=== PATIENT | female | born 1945 | race Caucasian/White ===

== ENCOUNTER 2021-05-01 03:26 | Inpatient (IN) | payer MEDICARE, BC, SELFPAY ==
[2021-05-01] VITALS (23 sets, daily range): BP systolic 101–127; BP diastolic 53–85; PULSE 76–125; RESP 14–23; TEMP 36.2–36.9; O2SAT 93–97; BMI 52.2
[2021-05-01] MEDS: ACETAMINOPHEN 1,000 MG/100 ML BTL 400 MG IVPB ×3 (06:00→22:31)
[2021-05-01] MEDS: Lactated Ringers 1,000 ML 85 ML IV (06:20)
[2021-05-01 07:16] LABS: Abs Immature Grans 0.12 10^3/uL (0.0-0.06); Absolute Basophil Count 0.04 10^3/uL (0.0-0.2); Absolute Eosinophil Count 0.05 10^3/uL (0.0-0.7); Absolute Monocyte Count 0.77 10^3/uL (0.1-0.8); Absolute Neutrophil Count 6.35 10^3/uL (1.2-6.7); Basophils % 0.5; Eosinophils % 0.7; HCT 30.3 % (36.0-46.0); HGB 10.5 g/dL (11.2-15.7); Immature Grans % 1.6; Lymphocytes % 3.9; MCH 43.8 pg (27.0-33.0); MCHC 34.7 % (32.0-36.0); MCV 126.3 fL (80-95); MPV 10.2 fL (8.0-11.0); Monocytes % 10.1; Neutrophils % 83.2; Nucleated RBC 3 %; Platelet Count 231 10^3/uL (130-400); RDW 18.3 % (11.7-14.6); RDW-SD 86.5 fL; WBC 7.63 10^3/uL (4.4-10.8)
--- NOTE | 2021-05-01 07:25 | HPE_ITS ---
Date of service: 05/01/21 Time of Service: 07:26 Assessment and Plan Assessment and plan (1) Subtrochanteric fracture of left femur: Status: Acute Assessment and plan: mechanical fall, no LOC although she was dx w/ new onset afib. No symptoms or signs of acute CHF nor ACS. Afib could be d/t MARJORIE or d/t her chronic alcohol use (2) Atrial fibrillation: Status: Acute Assessment and plan: new onset; will put her on lopressor 5 mg IV Q6h while NPO, then switch to oral lopressor. needs OP workup for MARJORIE; patient needs to reduce her alcohol to 1 drink per day or less. Will monitor for withdrawal w/ CIWA scoring and put her on banana bag. (3) Morbid obesity: Status: Acute (4) Primary sclerosing cholangitis: Status: Chronic (5) Rheumatoid arthritis: Status: Chronic (6) Autoimmune hepatitis: Status: Chronic History of Present Illness History of Present Illness Chief Complaint: left hip pain Narrative: 75 yr old female resident of [place], [place] who presented to [facility] after a mechanical fall resulting in left hip pain and found to have a subtrochanteric hip fracture. There was no loss of consciousness. Patient states this happened around 8 pm while putting things away in her kitchen and she turned and lost her balance. On arrival to [facility] she had external rotation of her hip and foreshortening of the left leg and unable to bear weight. The ER doctor performed a workup including routine labs (CBC, CMP, UA, TSH, troponin I and Covid-19 PCR (negative), EKG, and xray of her pelvis and left femur. She was found to have new onset atrial fibrillation at controlled rate of 90 to low 100's) and stable BP. Patient is vaccinated against COVID-19 and has had no exposures. Her is also vaccinated. She drinks 4 to 5 drinks of mixed whiskey and keely zhanna (about 1 1/2 shots per glass). She had about 4 drinks earlier in the evening prior to her fall. She has not had hx of withdrawal. Dr. Tonya Lake, ED physician at [facility] called multiple [facility] hospitals for transfer for surgical repair of her hip but none were able to accept her until he reached out to Dr. Fragoso who called me. Patient denies any hx of palpitations or chest pain/pressure however she lives a rather sedentary life. She has no known cardiac history that she is aware. The atrial fibrillation is a new diagnosis. Her comorbidities include autoimmune hepatitis/PSC mixed overlap along w/ RA. She is followed at [facility] by Dr. Cooper Ortiz. She is morbidly obese (BMI 52, wt 125 kg), and does not do any yardwork or gardening and rarely goes out shopping. 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 She and her live in a [facility] home in [place], [place] and their bedroom, living room, kitchen and bath are all on one floor. Review of Systems Constitutional Constitutional: Reports as per HPI and Reports snoring (no witnessed apnea) Eyes Eyes: Denies change in vision, Denies diplopia and Reports requires corrective lenses ENT Ears, Nose, Mouth, and Throat: Reports system reviewed and no additional complaints, except as documented and Reports disequilibrium Cardiovascular Cardiovascular: Denies chest pain at rest, Denies chest pain with activity, Denies syncope, Denies rapid heart rate, Reports irregular heart rhythm, Denies lightheadedness and Reports dyspnea on exertion Respiratory Respiratory: Denies chest congestion, Denies cough, Denies excessive phlegm production, Reports dyspnea on exertion, Reports snoring (no witnessed apnea) and Denies wheezing Gastrointestinal Gastrointestinal: Denies abdominal pain, Reports constipation, Denies nausea and Denies vomiting Genitourinary Genitourinary: Reports system reviewed and no additional complaints, except as documented Musculoskeletal Musculoskeletal: Reports as per HPI, Reports deformity and Reports arthralgias Integumentary/Breasts Skin/Breast: Reports system reviewed and no additional complaints, except as documented Neurologic Neurologic: Reports system reviewed and no additional complaints, except as documented, Denies syncope, Denies paresthesias and Reports disequilibrium Psychiatric Psychiatric: Reports system reviewed and no additional complaints, except as documented Endocrine Endocrine: Reports system reviewed and no additional complaints, except as documented Hematologic/Lymphatic Hematologic/Lymphatic: Reports system reviewed and no additional complaints, except as documented Allergic/Immunologic Allergic/Immunologic: Reports system reviewed and no additional complaints, except as documented and Denies wheezing [facility] Medical History (Updated 05/01/21 @ 09:56 by Thiago Garg) Autoimmune hepatitis Breast cyst Cataract Colitis Lipoma Morbid obesity Primary sclerosing cholangitis Rheumatoid arthritis Surgical History (Updated 05/01/21 @ 09:31 by Thiago Garg) H/O colonoscopy History of esophagogastroduodenoscopy (EGD) Family History (Updated 05/01/21 @ 09:33 by Thiago Garg) Father Lung cancer in his 70's Mother , in 80's unknown cause No problems noted. Sister , in her 90's unknown cause No problems noted. Social History (Updated 05/01/21 @ 09:35 by Thiago Garg) Smoking/Tobacco Use Status: Never Smoking risk assessment performed?: Yes Alcohol Intake: current Alcohol Intake frequency: 3 or more drinks per day Alcohol type: hard liquor Details: drinks 4 to 5 mixed drinks per night Drug use: Never Substance use type: does not use Do you feel safe at home: Yes History History 2 Para Hx # Term Pregnancies 2 Multiple births Hx # Pregnancies Ectopic pregnancies AB induced Hx Number of Living Children 2 AB spontaneous Meds Allergies and Home Medications Allergies Allergy/AdvReac Type Severity Reaction Status Date / Time No Known Allergies Allergy Unverified 05/01/21 05:18 Exam Const General: cooperative and well developed Nutritional Appearance: obese Orientation: alert, awake and oriented x3 HENMT Head: normal to inspection, no palpable skull fracture, normocephalic and atraumatic Ears: hearing grossly normal bilaterally, external ears normal and EAC abnormal excessive cerumen bilaterally General nose exam: external nose normal, nares normal, nasal mucous membranes and turbinates normal and no nasal discharge Face and sinus: normal facial exam Eyes General: appearance normal, both eyes and all related structures Visual Man: normal visual man by confrontation Alignment and Position: alignment normal Periorbital: periorbital findings normal Eyelids: eyelids normal Conjunctivae: conjunctivae normal Sclera: sclerae normal Cornea: corneas normal Pupils: PERRL and normal by confrontation EOM: EOM intact bilaterally Direct ophthalmoscopy: normal light reflex Neck Neck: normal visual inspection, full ROM, no lymphadenopathy, no meningeal signs, trachea midline, supple and no JVD Thyroid: thyroid normal Carotids: normal carotid upstroke Lymphatic: no lymphadenopathy noted Chest Chest: normal inspection of the chest and normal palpation of entire chest wall Resp Effort & Inspection: normal respiratory effort and able to speak in complete sentences Auscultation: clear to auscultation bilaterally Cardio Jugular venous pressure: no JVD Palpation: normal PMI Rate: regular rate Rhythm: abnormal rhythm irregularly irregular Bruits: no abdominal aortic bruits and no carotid bruits Pulses: brachial pulses present, radial pulses present, ulnar radial pulses present, popliteal pulses present, posterior tibial pulses present and dorsalis pedis present GI Inspection: normal to inspection and obesity Palpation: soft and no hepatosplenomegaly Back/Spine/Pelvis Back: no CVA tenderness Cervical Spine: normal cervical lordosis Skin General skin exam: elasticity normal, turgor normal and jaundice Lesions: no lesions Rashes: no rashes Trauma: no lacerations or abrasions Hair: normal Neuro General: patient alert, patient awake and patient oriented x3 Cranial Nerves: CN's II-XI intact bilaterally Cognition: normal cognition Speech: speech normal Motor: muscle tone normal throughout and strength 5/5 throughout (I did not test strength nor ROM in her left leg d/t her hip frx) Sensory Exam: no sensory deficits noted Extrem General: normal to inspection, capillary refill normal and normal exam except as noted (left leg is external rotated and foreshorted, tender over L. IT) Right lower extremity: foot Details: abnormal to inspection Details: a deformity Location: of the great toe and of the hallux valgus Left lower extremity: foot Details: normal capillary refill and abnormal to inspection Details: a deformity Location: of the hallux valgus Psych Appearance: grossly normal Mental Status: mental status grossly normal Speech and Movement: speech and movement normal Mood: congruent mood Affect: normal affect Attitude: cooperative Thought Process: normal Thought Content: normal Insight: insight good Judgment: judgment good Results Labs Result diagrams: 05/01/21 06:25 05/01/21 06:25 Last Vital Signs Temp 36.6 C 05/01/21 05:27 Pulse 104 H 05/01/21 05:27 Resp 18 05/01/21 05:27 BP 125/72 05/01/21 05:27 Pulse Ox 96 05/01/21 05:27 PAWSS Have you Been Recently Intoxicated or Drunk Within the Last 30 days?: No Have you Ever Experienced Previous Episodes of Alcohol Withdrawal?: No Have you ever Experienced Withdrawal Seizures?: No Have you ever Experienced Delirium Tremens(DT)s?: No Have you ever undergone Alcohol Rehabilitation Treatment (i.e, inpt ot outpatient treatment programs)?: No Have you ever Experienced Blackouts?: No Have you ever Combined Alcohol with other Downers within the last 90 days?: No Have you ever Combined Alcohol with any other Substance of Abuse during the last 90 days?: No Positive Blood Alcohol level on Presentation? [PCS.BAL]: No Evidence of Increased Autonomic Activity (i.e. HR>120, tremor, sweating, agitation, nausea)?: No Result: 0
[2021-05-01 07:47] LABS: ALT 34 U/L (14-59); AST 44 U/L (15-37); Albumin 2.9 g/dL (3.4-5.0); Alkaline Phosphatase 83 U/L (46-116); Anion Gap 10.9 mmol/L (3-11); BUN 11 mg/dL (7-18); Bilirubin, Total 3.8 mg/dL (0.2-1.0); CO2 23.1 mmol/L (21.0-32.0); CREATININE 0.6 mg/dL (0.55-1.02); Calcium 8.5 mg/dL (8.5-10.1); Chloride 106 mmol/L (98-107); Glucose 114 mg/dL (74-106); Magnesium 1.7 mg/dL (1.8-2.4); Potassium 4.4 mmol/L (3.5-5.1); Sodium 140 mmol/L (136-145); TSH (W/Ref FT4) 2.72 uIU/mL (0.36-3.74); Total Protein 5.8 g/dL (6.4-8.2)
[2021-05-01 07:51] LABS: Anisocytosis 1+; Basophilic Stippling Present; Diff Comment RBC Morph Reviewed
[2021-05-01 07:52] LABS: Macrocytosis 3+; Poikilocytes 1+
[2021-05-01 07:56] LABS: Source Nasal/Nares
--- NOTE | 2021-05-01 08:01 | OCONE_ITS ---
Date of service: 05/01/21 Time of Service: 08:01 History of Present Illness History of Present Illness Chief Complaint: Left Hip Fracture Narrative: Devi is a 75-year-old who fell last night she fell onto her left side. She had immediate pain and deformity and was unable to bear weight. She was seen at the [facility] in [facility]. She was diagnosed with a comminuted intertrochanteric fracture of the left hip. There is no orthopedic coverage at [facility] and requesting transfer was unsuccessful. Multiple hospitals were called and there were no beds available. I was contacted by the emergency department physician from [facility] who requested transfer for fixation of the hip fracture. I obliged to fix the fracture under the admission and consultation of medicine. Ms. Yousif was then admitted in transfer to Dr. Kennedy and the hospitalist service. She reports no significant premorbid hip pain. However, she does have bilateral knee pain, slightly worse on the left. She has had back pain for years. She sees Dr. Ortiz for autoimmune hepatitis but otherwise does not follow with a primary care provider. She denies any sick contacts. She reports to be in her usual state of health. Unfortunately, she is not very active and walks only minimally. She does have shortness of breath when she tries to walk any longer distance or try to go up stairs. She reports pain in the left hip. No pain in the left leg. No numbness or tingling. Consults Consult date: 05/01/21 Requesting physician: Thiago Garg Consult Reason Left Hip Fracture Assessment and Plan Assessment and plan (1) Intertrochanteric fracture of left femur: Status: Acute Assessment and plan: Devi is a 75-year-old who suffered a comminuted intertrochanteric fracture of the left hip. She does have a new diagnosis of atrial fibrillation which was seen on the EKG. Echocardiogram has been performed does not show any concerning features to preclude surgery. She is morbidly obese and this unfortunately make the fracture fixation very challenging for access. My recommendation be for an intramedullary nail. I discussed the technical features of this case. I reviewed the risk of the procedure to include bleeding, infection, pain, stiffness, hardware prominence, hardware failure, malunion, nonunion, need for repeat procedures, refracture, blood clot, cardiopulmonary demise. She does carry cardiac risk given the new diagnosis of atrial fibrillation and her morbid obesity. She will build to mobilize afterwards weightbearing as tolerated with an assistive device. However, the unlikely should be able to go home given her significant comorbidities including morbid obesity. I will default to the medicine service for anticoagulation afterwards as well. Qualifiers: Encounter type: initial encounter Fracture type: closed Fracture alignment: displaced Qualified Code(s): S72.142A - Displaced intertrochanteric fracture of left femur, initial encounter for closed fracture Review of Systems All systems reviewed & are unremarkable except as noted in HPI and below PFSH Medical History (Updated 05/01/21 @ 15:51 by Wlison Fragoso MD) Autoimmune hepatitis Breast cyst Cataract Colitis Lipoma Morbid obesity Primary sclerosing cholangitis Rheumatoid arthritis Surgical History (Updated 05/01/21 @ 09:31 by Thiago Garg) H/O colonoscopy History of esophagogastroduodenoscopy (EGD) Family History (Updated 05/01/21 @ 09:33 by Thiago Garg) Father Lung cancer in his 70's Mother , in 80's unknown cause No problems noted. Sister , in her 90's unknown cause No problems noted. Social History (Updated 05/01/21 @ 09:35 by Thiago Garg) Smoking/Tobacco Use Status: Never Smoking risk assessment performed?: Yes Alcohol Intake: current Alcohol Intake frequency: 3 or more drinks per day Alcohol type: hard liquor Details: drinks 4 to 5 mixed drinks per night Drug use: Never Substance use type: does not use Do you feel safe at home: Yes History History 2 Para Hx # Term Pregnancies 2 Multiple births Hx # Pregnancies Ectopic pregnancies AB induced Hx Number of Living Children 2 AB spontaneous Exam Narrative Exam Narrative: Resting in the hospital bed. Head is normocephalic and atraumatic. She appears comfortable and is alert and oriented x3. The left leg is shortened and externally rotated.No notable bruising is appreciated. She is morbidly obese. There is some chronic changes on the pannus fold but no sign of infection. There are some signs of chronic edema about bilateral lower extremities a notable hallux valgus deformity of the left foot as well as the right. Some mild pain to palpation along the medial joint line of the left knee. No pain along the tibia no pain over the distal femur. Hip range of motion was not tested. Sensation intact light touch over the deep and superficial peroneal nerve and tibial nerve. Palpable DP and PT pulse. Results Last Vital Signs Temp 36.8 C 05/01/21 07:30 Pulse 107 H 05/01/21 07:30 Resp 17 05/01/21 07:30 BP 105/71 05/01/21 07:30 Pulse Ox 95 05/01/21 07:30 Labs Result diagrams: 05/01/21 06:25 05/01/21 06:25 Labs: Laboratory Results - last 24 hr 05/01/21 05/01/21 05/01/21 06:25 06:25 06:44 WBC 7.63 RBC 2.40 L Hgb 10.5 L Hct 30.3 L MCV 126.3 H MCH 43.8 H MCHC 34.7 RDW 18.3 H Plt Count 231 MPV 10.2 Immature Gran % 1.6 Neutrophils % 83.2 Lymphocytes % 3.9 Monocytes % 10.1 Eosinophils % 0.7 Basophils % 0.5 Nucleated RBC % 3 Absolute Neutrophils 6.35 Absolute Lymphocytes 0.30 L Absolute Monocytes 0.77 Absolute Eosinophils 0.05 Absolute Basophils 0.04 RBC Morphology See Below Poikilocytosis 1+ Basophilic Stippling Present Anisocytosis 1+ Macrocytosis 3+ Sodium 140 Potassium 4.4 Chloride 106 Carbon Dioxide 23.1 Anion Gap 10.9 BUN 11 Creatinine 0.6 Estimated GFR/1.73 m2 >= 60.00 Glucose 114 H Calcium 8.5 Magnesium 1.7 L Total Bilirubin 3.8 H AST 44 H ALT 34 Alkaline Phosphatase 83 Total Protein 5.8 L Albumin 2.9 L TSH 2.72 COVID-19 Source SARS-CoV-2 (PCR) Patient ABO/Rh A Positive Antibody Screen NEGATIVE 05/01/21 05/01/21 07:35 07:35 WBC RBC Hgb Hct MCV MCH MCHC RDW Plt Count MPV Immature Gran % Neutrophils % Lymphocytes % Monocytes % Eosinophils % Basophils % Nucleated RBC % Absolute Neutrophils Absolute Lymphocytes Absolute Monocytes Absolute Eosinophils Absolute Basophils RBC Morphology Poikilocytosis Basophilic Stippling Anisocytosis Macrocytosis Sodium Potassium Chloride Carbon Dioxide Anion Gap BUN Creatinine Estimated GFR/1.73 m2 Glucose Calcium Magnesium Total Bilirubin AST ALT Alkaline Phosphatase Total Protein Albumin TSH COVID-19 Source Cancelled Nasal/Nares SARS-CoV-2 (PCR) Cancelled Patient ABO/Rh Antibody Screen Imaging Imaging Studies: X-ray of the pelvis and the left hip demonstrates a comminuted intertrochanteric fracture of the left hip with notable shortening. This fracture seems to extend into the greater trochanter and exits at the level of the lesser trochanter. No distal extension is appreciated.
[2021-05-01] MEDS: MAGNESIUM SULFATE 2 GM/50 ML BAG IVPB (08:11)
[2021-05-01 08:46] LABS: COVID-19 PCR Negative (Negative)
[2021-05-01] MEDS: Thiamine 100 MG TAB PO (09:15)
[2021-05-01] MEDS: Multivitamin TAB 1 TAB PO (09:15)
[2021-05-01] MEDS: Ketorolac 15 MG/ML VIAL IVP (09:20)
[2021-05-01] MEDS: Normal Saline Flush 10 ML SYR (09:21)
[2021-05-01] MEDS: Pantoprazole 40 MG VIAL IVP (09:21)
[2021-05-01 09:25] LABS: Folate 3.5 ng/mL (8.6-20.0); Vitamin B12 564 pg/mL (193-986)
--- NOTE | 2021-05-01 09:45 | RT.EKG_ITS ---
APPROVED REPORT Exam: Resting ECG Reason for Exam: preoperative Patient Location: I HR:110 bpm ECG Measurements Heart Rate 110 AXIS DC [id number] P [id number] QRSd 95 QRS 9 QT 353 T 33 QTc 477 Conclusion Atrial fibrillation...? atrial activity Ventricular premature complex...V complex w/ short R-R interval Low voltage, precordial leads...precordial leads <1.0mV Consider anterior infarct...Q >30mS in V2-V5
[2021-05-01 10:51] LABS: Bilirubin, Direct 0.8 mg/dL (0.0-0.2); ETHANOL BLOOD 25.9 mg/dL (<3)
--- NOTE | 2021-05-01 10:56 | PDOC.CMIN ---
- If Service Date Differs Date of service: 05/01/21 Time of Service: 10:56 Care Management Initial Assess REASON FOR HOSPITALIZATION:: Fracture of left femur PAST MEDICAL HISTORY/PAST SURGICAL HISTORY:: Medical History (Updated 05/01/21 @ 09:56 by Thiago Garg). Autoimmune hepatitis. Breast cyst. Cataract. Colitis. Lipoma. Morbid obesity. Primary sclerosing cholangitis. Rheumatoid arthritis. Surgical History (Updated 05/01/21 @ 09:31 by Thiago Garg). H/O colonoscopy. History of esophagogastroduodenoscopy (EGD) PREVIOUS FUNCTIONAL STATUS/SOCIAL/FAMILY SUPPORTS:: Devi lives in [place], [place] in a single family home with her aP. She has 2 children, a daughter Emilie and a son Wing both of whom live closeby and are supportive.Devi descibes herself as independent and requires no assistive devices or community services. CURRENT FUNCTIONAL STATUS:: Devi was lying in bed visiting with her daughter when CM met with her. She was very pleasant and engaged easily with CM. She talked a bit about her family and about possible discharge plans. Dr. Fragoso stopped by while CM was with Devi and explained the procedure he was about to perform and explained that rehab in a SNF might be indicated if she can not get up independently post-operatively. Devi did state that she would be agreeable, but would prefer to go home. CM assured her that placement would be sought close to her home if it was necessary. ADVANCE DIRECTIVES:: Devi does not have ADs but is considering completing them while at [facility]. CM offered to assist with this process. Has patient been provided with info about the portal/API?: Yes Did the patient sign up for the portal?: No (lives out of area) CODE STATUS:: Full Code INSURANCE COVERAGE / FINANCIAL ISSUES:: Medicare. BC BS CURRENT HOME/COMMUNITY SERVICES/EQUIPMENT:: none PRIMARY CARE PHYSICIAN:: Bryn Sanches MD with the [facility] group. POTENTIAL DISCHARGE NEEDS:: Follow up with PCP, orthopedic surgeon and plan of care PATIENT/FAMILY EDUCATION NEEDS:: Review of discharge instructions, medications, activity, limitations, follow up plan, Ask Me Three TRANSPORTATION:: to be determined by disposition PLAN:: Devi's discharge plan is not clear at this time. She is having surgery later today and may need a short rehab stay prior to returning home. CM will continue to support Devi and assess for discharge planning concerns.
--- NOTE | 2021-05-01 11:00 | W.ANESPOSTOP ---
Postoperative Evaluation Date, Time and Location Date Performed: 05/01/21 Time Performed: 11:00 Patient Location: Day Surgery Unit Vital Signs Most Recent Imported Vital Signs: Most Recent Vital Signs Temp Pulse Resp BP Pulse Ox 36.8 C 107 H 17 105/71 95 05/01/21 07:30 05/01/21 07:30 05/01/21 07:30 05/01/21 07:30 05/01/21 07:30 Most Recent Manually Entered Vital Signs: Adult Blood Pressure: 154/86 Heart Rate: 67 Respirations: 18 Oxygen Saturation (%): 97 Temperature (C): 36.1 C Pain Score (0-10 Scale): 0 Pain Score Most Recent Pain Score: Most Recent Pain Score Pain Level 3 05/01/21 09:20 Assessment Mental Status: Awake (Alert & Oriented to Patient Baseline) Airway and Respiratory Function: Patent airway with normal (patient baseline) respiratory exam Cardiovascular Function: Hemodynamically Stable Hydration Status: Adequately Hydrated Nausea & Vomiting: No Nausea or Vomiting Pain: Pt. Denies Any Pain Peripheral Nerve Block: Patient did not receive a nerve block Teaching Patient Teaching: Discussed Safe Use of Pain Medication Given Recent Anesthesia
[2021-05-01] MEDS: MAGNESIUM SULFATE 8.12 MEQ, MULTIVITAMIN 10 ML, THIAMINE 100 MG, FOLIC ACID 1 MG in Nor... 168.867 MG IV (11:08)
--- NOTE | 2021-05-01 14:52 | ANES.PREOP_ITS ---
General Info Date of Service Date Performed: 05/01/21 Height: 5 ft 1 in Weight: 125.4 kg Body Mass Index (BMI): 52.2 Surgical Procedure: Operation Date: 05/01/21 17:00 Proposed Procedures Side Surgeon p (LEFT) Hip TFNA Left Wilson Fragoso MD Meds Allergies and Home Medications Allergies Allergy/AdvReac Type Severity Reaction Status Date / Time No Known Allergies Allergy Unverified 05/01/21 05:18 Current Visit Medications: Current Medications Generic Name Dose Route Start Last Admin Trade Name Freq PRN Reason Stop Dose Admin Al Hydrox/Mg Hydrox/Simethicone 30 ml 05/01/21 03:26 Mylanta Suspension 30 Ml Cup PO Q2H PRN PRN Albuterol Sulfate 2.5 mg 05/01/21 03:26 Albuterol 2.5 Mg/3 Ml Inh Soln Vial UPD Q2H PRN PRN Dimethicone/Zinc Oxide 0 gm 05/01/21 03:26 Nathan Protect Cream 142 Gm Tube TP PRN PRN Docusate Sodium 100 mg 05/01/21 03:26 Docusate Sodium 100 Mg Cap PO TID PRN PRN Hydromorphone HCl 0.5 - 1 mg 05/01/21 03:30 Hydromorphone 2 Mg/Ml Vial IVP Q2H PRN PRN Ringer's Solution 1,000 mls @ 85 mls/hr 05/01/21 06:00 05/01/21 06:20 IV 85 mls/hr INFUSION FRANDY Administration Acetaminophen 1,000 mg in 100 mls @ 400 mls/hr 05/01/21 06:00 05/01/21 14:50 Ofirmev IVPB 400 mls/hr Q8H FRANDY Administration Magnesium Sulfate 8.12 meq/ 1,013.2 mls @ 168.867 mls/hr 05/01/21 10:00 05/01/21 11:08 Multivitamins 10 ml/ Thiamine IV 05/01/21 15:59 168.867 mls/hr HCl 100 mg/ Folic Acid 1 mg/ INFUSION ONE Administration Sodium Chloride Ketorolac Tromethamine 15 mg 05/01/21 03:30 05/01/21 09:20 Ketorolac 15 Mg/Ml Vial IVP 05/06/21 03:29 15 mg Q6H PRN PRN Administration Lorazepam 0 mg 05/01/21 08:51 Lorazepam 1 Mg Tab PO/SL DIRECTED PRN Magnesium Hydroxide 30 ml 05/01/21 03:26 Milk Of Magnesia 30 Ml Cup PO DAILY PRN PRN Metoprolol Tartrate 5 mg 05/01/21 10:00 05/01/21 11:35 Metoprolol 5 Mg/5 Ml Vial IVP Not Given Q6H FRANDY Multivitamins 1 tab 05/02/21 08:30 Multivitamin Tab PO 05/07/21 08:31 QAM FRANDY Ondansetron HCl 4 mg 05/01/21 03:30 Ondansetron 4 Mg/2 Ml Vial IVP Q4H PRN PRN Pantoprazole Sodium 40 mg 05/01/21 08:30 05/01/21 09:21 Pantoprazole 40 Mg Vial IVP 40 mg DAILY FRANDY Administration Polyethylene Glycol 17 gm 05/01/21 03:26 Polyethylene Glycol 3350 17 Gm Packet PO DAILY PRN PRN Constipation Thiamine HCl 100 mg 05/02/21 08:30 Thiamine 100 Mg Tab PO 05/07/21 08:31 QAM FRANDY PFSH Active Problems Active Problems: Problem Status Onset Code Atrial fibrillation I48.91 Subtrochanteric fracture of left femur S72.22XA Morbid obesity E66.01 Rheumatoid arthritis M06.9 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 Autoimmune hepatitis K75.4 Medical History Medical History (Updated 05/01/21 @ 09:56 by Thiago Garg) Autoimmune hepatitis Breast cyst Cataract Colitis Lipoma Morbid obesity Primary sclerosing cholangitis Rheumatoid arthritis Surgical History Surgical History (Updated 05/01/21 @ 09:31 by Thiago Garg) H/O colonoscopy History of esophagogastroduodenoscopy (EGD) Tobacco Smoking/Tobacco Use Status: Never Alcohol Alcohol Intake: current Alcohol intake frequency: 3 or more drinks per day Alcohol type: hard liquor Details: drinks 4 to 5 mixed drinks per night Substance Use Substance use: Never Substance use type: does not use Prental History History 2 Para Hx # Term Pregnancies 2 Multiple births Hx # Pregnancies Ectopic pregnancies AB induced Hx Number of Living Children 2 AB spontaneous Vital Signs and Lab Results Vital Signs Most Recent Vital Signs in EMR: Most Recent Vital Signs Temp Pulse Resp BP Pulse Ox 36.8 C 107 H 17 105/77 95 05/01/21 07:30 05/01/21 07:30 05/01/21 07:30 05/01/21 11:35 05/01/21 07:30 Lab Results Result Diagrams: 05/01/21 06:25 05/01/21 06:25 Blood Type / Crossmatch: Patient ABO/Rh A Positive 05/01/21 06:44 05/01/21 Antibody Screen NEGATIVE 05/01/21 06:44 05/01/21 Complete Blood Count: White Blood Count 7.63 10^3/uL (4.4-10.8) 05/01/21 06:25 05/01/21 Red Blood Count 2.40 10^6/uL (3.93-5.22) L 05/01/21 06:25 05/01/21 Hemoglobin 10.5 g/dL (11.2-15.7) L 05/01/21 06:25 05/01/21 Hematocrit 30.3 % (36.0-46.0) L 05/01/21 06:25 05/01/21 Platelet Count 231 10^3/uL (130-400) 05/01/21 06:25 05/01/21 Complete Metabolic Panel: Sodium Level 140 mmol/L (136-145) 05/01/21 06:25 05/01/21 Potassium Level 4.4 mmol/L (3.5-5.1) 05/01/21 06:25 05/01/21 Chloride Level 106 mmol/L (98-107) 05/01/21 06:25 05/01/21 Carbon Dioxide Level 23.1 mmol/L (21.0-32.0) 05/01/21 06:25 05/01/21 Blood Urea Nitrogen 11 mg/dL (7-18) 05/01/21 06:25 05/01/21 Creatinine 0.6 mg/dL (0.55-1.02) 05/01/21 06:25 05/01/21 Estimated GFR/1.73 m2 >= 60.00 (mL/min/1.73m2) 05/01/21 06:25 05/01/21 Magnesium Level 1.7 mg/dL (1.8-2.4) L 05/01/21 06:25 05/01/21 Calcium Level 8.5 mg/dL (8.5-10.1) 05/01/21 06:25 05/01/21 Albumin 2.9 g/dL (3.4-5.0) L 05/01/21 06:25 05/01/21 Glucose Level 114 mg/dL (74-106) H 05/01/21 06:25 05/01/21 Liver Function Panel: Alanine Aminotransferase (ALT/SGPT) 34 U/L (14-59) 05/01/21 06:25 05/01/21 Aspartate Amino Transf (AST/SGOT) 44 U/L (15-37) H 05/01/21 06:25 05/01/21 Coagulation Panel: No Data to Display Cardiac Panel: No Data to Display Arterial Blood Gas: No Data to Display Venous Blood Gas: No Data to Display Pancreas Panel: No Data to Display Thyroid Panel: Thyroid Stimulating Hormone (TSH) 2.72 uIU/mL (0.36-3.74) 05/01/21 06:25 05/01/21 Infectious Disease: Coronavirus (COVID-19)(PCR) Negative (Negative) 05/01/21 07:35 05/01/21 Coronavirus 2019 Source Nasal/Nares 05/01/21 07:35 05/01/21 Blood Cultures: No Data to Display Toxicology Panel: Ethyl Alcohol Level 25.9 mg/dL (<3) H 05/01/21 06:25 05/01/21 Anesthesia Assessment and Plan Anesthesia History Personal History: No History of Anesthesia Complications Family History: No Family History of Anesthesia Complications Exercise Tolerance Exercise Tolerance: Metabolic Equivalents<4 Pertinent Negatives Pertinent Negatives: No Symptoms of GERD, No Major Pulmonary Symptoms or Compl aints and No History of CVA/TIA Cardiac & Pulmonary Exam Cardiac Exam: Heart Murmur Present Pulmonary Exam: Clear Bilateral Breath Sounds Airway Exam Known Difficult Airway: No Mallampati Class: 2 Mouth Opening: Normal (> 3cm) Thyromental Distance: Greater than 3 cm Facial Hair: Full Damon Neck Range of Motion: Full ROM Neck Circumference: Thick Teeth Condition: Normal Dentition ASA Classification ASA Score: ASA 4 Emergency Case?: No NPO Status NPO Status: NPO Clears >2 hours, Solids >8 hours Anesthesia Plan Resuscitation Status: Full Code Anesthesia Technique: General Anesthesia Airway Planned: Endotracheal Tube Monitors Used: Standard Monitors
--- NOTE | 2021-05-01 15:34 | CHAPLAIN ---
Devi was resting in bed when I visited. She said she wasn't sure how she was doing. She is from [place], [place] and said she never expected to be in the hospital in [facility]. Beds were not available closer to home. Devi believes that her and daughter will make the trip north to visit today.
[2021-05-01] MEDS: Lactated Ringers 1,000 ML 30 ML IV (16:11)
[2021-05-01] MEDS: ceFAZolin 3,000 MG in Normal Saline 100 ML 200 MG IVPB (16:44)
[2021-05-01] MEDS: Bupivacaine 0.25% Pres-Free 30 ML VIAL (17:28)
[2021-05-01] MEDS: Ketorolac 30 MG/ML VIAL (17:30)
--- NOTE | 2021-05-01 17:36 | DI.RAD_ITS ---
Exam(s) XR HIP LT IN OR EXAM: XR HIP LT IN OR CLINICAL HISTORY: LEFT HIP FRACTURE. TECHNIQUE: 2D and realtime digital imaging was performed. CONTRAST MATERIAL: Oral barium Oral water soluble contrast was administered. COMPARISON: CR XR LT FEMUR [id number]* from 04/30/2021 CR XR LT FEMUR [id number]* from 04/30/2021 FINDINGS: Intraoperative images reveal placement of a lag screw across the intertrochanteric fracture site real ignment of fracture fragments and screw is secured by short intramedullary stew. IMPRESSION: RADIATION DOSE DELIVERED: kelsy Herzog= mGy
--- NOTE | 2021-05-01 18:50 | W.ANESPOSTOP ---
Postoperative Evaluation Date, Time and Location Date Performed: 05/01/21 Time Performed: 18:15 Patient Location: PACU Vital Signs Most Recent Imported Vital Signs: Most Recent Vital Signs Temp Pulse Resp BP Pulse Ox 36.5 C 85 20 116/85 95 05/01/21 18:35 05/01/21 18:35 05/01/21 18:35 05/01/21 18:35 05/01/21 18:35 Pain Score Most Recent Pain Score: Most Recent Pain Score Pain Level 3 05/01/21 18:35 Assessment Mental Status: Awake (Alert & Oriented to Patient Baseline) Airway and Respiratory Function: Patent airway with normal (patient baseline) respiratory exam Cardiovascular Function: Hemodynamically Stable Hydration Status: Adequately Hydrated Nausea & Vomiting: No Nausea or Vomiting Pain: Pain is tolerable per patient Peripheral Nerve Block: Patient did not receive a nerve block
--- NOTE | 2021-05-01 19:08 | W.PM.PROGNOT ---
Date of Service Date of service: 05/01/21 Time of Service: 19:08 Subjective Subjective Interval history since last seen: Patient seen in a post-op check. She just underwent intramedullary nailing LLE. She is pain free. She denies shortness of breath but does look slightly dyspneic on my exam. She is on room air. D/c IVF. Administer prn albuterol. Continue to monitor on tele. Objective Last Vital Signs Temp 36.2 C L 05/01/21 18:57 Pulse 87 05/01/21 18:57 Resp 19 05/01/21 18:57 BP 115/84 05/01/21 18:57 Pulse Ox 97 05/01/21 18:57 Laboratory Results - last 24 hr 05/01/21 05/01/21 05/01/21 06:25 06:25 06:25 WBC 7.63 RBC 2.40 L Hgb 10.5 L Hct 30.3 L MCV 126.3 H MCH 43.8 H MCHC 34.7 RDW 18.3 H Plt Count 231 MPV 10.2 Immature Gran % 1.6 Neutrophils % 83.2 Lymphocytes % 3.9 Monocytes % 10.1 Eosinophils % 0.7 Basophils % 0.5 Nucleated RBC % 3 Absolute Neutrophils 6.35 Absolute Lymphocytes 0.30 L Absolute Monocytes 0.77 Absolute Eosinophils 0.05 Absolute Basophils 0.04 RBC Morphology See Below Poikilocytosis 1+ Basophilic Stippling Present Anisocytosis 1+ Macrocytosis 3+ Sodium 140 Potassium 4.4 Chloride 106 Carbon Dioxide 23.1 Anion Gap 10.9 BUN 11 Creatinine 0.6 Estimated GFR/1.73 m2 >= 60.00 Glucose 114 H Calcium 8.5 Magnesium 1.7 L Total Bilirubin 3.8 H Conjugated Bilirubin 0.8 H AST 44 H ALT 34 Alkaline Phosphatase 83 Total Protein 5.8 L Albumin 2.9 L Vitamin B12 564 Folate 3.5 L TSH 2.72 Ethyl Alcohol 25.9 H COVID-19 Source SARS-CoV-2 (PCR) Patient ABO/Rh Antibody Screen 05/01/21 05/01/21 05/01/21 06:44 07:35 07:35 WBC RBC Hgb Hct MCV MCH MCHC RDW Plt Count MPV Immature Gran % Neutrophils % Lymphocytes % Monocytes % Eosinophils % Basophils % Nucleated RBC % Absolute Neutrophils Absolute Lymphocytes Absolute Monocytes Absolute Eosinophils Absolute Basophils RBC Morphology Poikilocytosis Basophilic Stippling Anisocytosis Macrocytosis Sodium Potassium Chloride Carbon Dioxide Anion Gap BUN Creatinine Estimated GFR/1.73 m2 Glucose Calcium Magnesium Total Bilirubin Conjugated Bilirubin AST ALT Alkaline Phosphatase Total Protein Albumin Vitamin B12 Folate TSH Ethyl Alcohol COVID-19 Source Cancelled Nasal/Nares SARS-CoV-2 (PCR) Cancelled Negative Patient ABO/Rh A Positive Antibody Screen NEGATIVE PAWSS Have you Been Recently Intoxicated or Drunk Within the Last 30 days?: No Have you Ever Experienced Previous Episodes of Alcohol Withdrawal?: No Have you ever Experienced Withdrawal Seizures?: No Have you ever Experienced Delirium Tremens(DT)s?: No Have you ever undergone Alcohol Rehabilitation Treatment (i.e, inpt ot outpatient treatment programs)?: No Have you ever Experienced Blackouts?: No Have you ever Combined Alcohol with other Downers within the last 90 days?: No Have you ever Combined Alcohol with any other Substance of Abuse during the last 90 days?: No Positive Blood Alcohol level on Presentation? [PCS.BAL]: No Evidence of Increased Autonomic Activity (i.e. HR>120, tremor, sweating, agitation, nausea)?: No Result: 0
--- NOTE | 2021-05-01 21:30 | W.PM.OP ---
Date of service: 05/01/21 Time of Service: 18:14 Operative Note Operative Note DATE OF PROCEDURE: 05/01/21 PRE-OP DIAGNOSIS: Left comminuted, intertrochanteric Femur Fracture POST-OP DIAGNOSIS: same Super morbid obesity PROCEDURE: Left intramedullary Fixation of Proximal Femur Fracture with added complexity given patient's super morbid obesity BMI greater than 54 SURGEON: Wilson Fragoso CIRCUIT BREAKER MECHANIC: Yane Sprague ANESTHESIA TYPE: General LMA/ETT Refer to Anesthesia Record ESTIMATED BLOOD LOSS: 100 PATHOLOGY: none sent TOURNIQUET TIME: 0 COMPLICATIONS: None Patient was transported to: PACU Patient's condition: stable Implants: Depuy-Synthes TFNA 11mm x 170mm Indications: Poornima who presented to the Emergency Department at [facility] after a fall. X-rays confirmed the diagnosis of a comminuted, intertrochanteric fracture of the proximal femur. Given no orthopedic availability at the hospital and no available beds at multiple other hospitals in the entire [place] region, she was accepted at [facility] for definitive management. During the initial consult, I reviewed the possible treatment options and given the fracture of the femur, I recommened operative fixation. I discussed the technical details of the surgery. I reviewed the risks such as bleeding, infection, pain, stiffness, malunion, nonunion, hardware prominence, hardware faiilure, malrotation, avascular necrosis, blood clot. Despite these risks, she agreed to proceed. Findings: There was a fracture of the proximal femur which comminuted with extension into the greater trochanter but was able to be reduced with traction and internal rotation and external manipulation. Fixation of the fracture was made very challenging given her super morbid obesity and difficulty with access into the femur with her body habitus, impinging upon the targeting arm. Procedure Description: Devi was greeted in the preoperative area. Consent was previously reviewed and signed. Once in the operating room, anesthesia was administered. Both legs were padded and placed into the [place] table boots. The patient was transferred to the HANA table in the supine position. She was positioned onto the perineal post. All bony prominences were well padded. The arm of the operative side was then placed across the chest and secured. The nonoperative leg was scissored. A gentle reduction was then performed with traction and internal rotation and gentle external manipulation. X-ray demonstrated that this had closely reduce the fracture fragments despite the comminution and extension into the greater trochanter. I then also manipulated her pannus and her redundant adiposity over the lateral aspect of her abdomen and chest to clear as much space as possible for entry into the femur. This was done by taping the pannus and additional adiposity across her body to the contralateral side of the table. Prophylactic antibiotics, cefazolin 3 grams, was given for prophylactic antibiotics. A timeout was performed for safe surgery. The left leg was prepped with Chloraprep. A shower curtain drape was placed. Using fluoroscopy, the starting point was marked over the lateral hip, proximal to the tip of the greater trochanter. A 3cm incision was made through skin and the fascia of the gluteus musculature until the tip of the trochanter was palpable. The starting wire was placed onto the tip, just slightly on the media aspect, and centered in the AP plane. Gaining this appropriate access point was very challenging. I had to extend the incision proximally in order to get access given how deep the tip the femur was from the lateral edge of the skin. Despite taping over the pannus and adiposity from her left side, the femur was still at least 12 cm in from the skin edge. Once in an appropriate and acceptable position, using a anshul, the starting guide wire was buried into the bone. A lateral x-ray confirmed appropriate position and the guidewire was advanced to the level of the lesser trochanter. With a tissue protector, the proximal femur was opened with the opening reamer. The short TFNA was chosen for this case and a Synthes TFNA [id number] nail was selected and opened on the back table. The nail was assembled to the aiming arm on the back table and confirmed to be aligned with the triple sleeve for blade insertion. Using manual force the nail was advanced into the femur. Unfortunately, the angle was extremely steep and once again the actual nail had to be buried in the fat of the proximal left hip in order to gain access at the correct angle into the femur itself. I then used light mallet blows to advance the nail to its appropriate position. The targeting arm actually impinged against the lateral edge of the left leg such that there was no space between the targeting arm and the skin of the lateral thigh. The skin, soft tissue, and IT band was then incised in line with the triple sleeve. The triple sleeve was advanced down to the lateral femur. A guidewire was advanced into the femoral head where it was noted to be centered. A lateral x-ray was used to confirm centered positioning on the lateral. Happy with the length of the guidewire, this was measured. A 105mm helical blade was opened. The lateral cortex was opened and the path of the blade was reamed with a tapered reamer to appropriate depth. The helical blade was malletted into position and confirmed to be appropriately located on fluoroscopy. During the impaction the fracture was displaced such that the head was medialized. The set screw was advanced to a half turn shy of fully tightened, allowing for the helical blade to slide. The fracture was compressed before removing the targeting device. This better reduce the fracture fragments back together. Removal of the flexible screwdriver was quite challenging. In order to gain the access of the nail through her skin and fat, a sharp angle was obtained. However, this bent the tip of the screwdriver which partially locked it into the proximal aspect of the nail. However, with some manipulation of the soft tissues and the screwdriver, this was able to be removed. The targeting device was removed, once again with notable difficulty given the approach angle. AP and lateral x-rays of the hip confirmed appropriate positioning within the femur and with good alignment of the fracture. Using the targeting arm, the skin was incised for placement of the distal locking screw. The trochar was inserted through the skin and IT band down onto the lateral cortex of the femur. The 4.2mm drill was advanced across the femur and through the nail. This was measured and an appropriately sized 5.0mm screw was placed. The targeting arm was removed. Final x-rays were obtained. The wounds were thoroughly irrigated. A cocktail consisting of 50cc of 0.5% bupivacaine, 30mg Ketorolac, and 10cc of Exparel was injected throughout the wounds both deep and superficially. The deep fascia of the proximal two wounds was reapproximated with a 0 Vicryl. The deep tisses were closed with a 2-0 Vicryl and the skin was closed with a running subcuticular Monocryl. The wounds were dressed with a Mepilex silver dressing. At the end of the case, all counts were correct. She tolerated the procedure well without known complication and was taken to the PACU for recovery. Physical therapy will start post-operatively, weigh-bearing as tolerated with assistive devices. Anticoagulation will start within 12-24 hours. 3 doses of post-operative antibitiocis for prophylaxis will be administered.
[2021-05-01] MEDS: ceFAZolin 1 GM/50 ML BAG IVPB (22:34)
[2021-05-02] VITALS (12 sets, daily range): BP systolic 100–125; BP diastolic 64–82; PULSE 74–106; RESP 18–20; TEMP 36.7–37.6; O2SAT 94–96
[2021-05-02] MEDS: ceFAZolin 1 GM/50 ML BAG IVPB ×2 (06:42→13:57)
[2021-05-02 06:43] LABS: Abs Immature Grans 0.12 10^3/uL (0.0-0.06); Absolute Basophil Count 0.02 10^3/uL (0.0-0.2); Absolute Lymphocyte Count 0.28 10^3/uL (1.2-3.4); Basophils % 0.2; HCT 27.9 % (36.0-46.0); HGB 9.7 g/dL (11.2-15.7); Immature Grans % 1.5; Lymphocytes % 3.4; MCH 43.9 pg (27.0-33.0); MCHC 34.8 % (32.0-36.0); MCV 126.2 fL (80-95); MPV 10.6 fL (8.0-11.0); Monocytes % 8.5; Neutrophils % 86.4; Nucleated RBC 3 %; Platelet Count 218 10^3/uL (130-400); RBC 2.21 10^6/uL (3.93-5.22); RDW 18.5 % (11.7-14.6); RDW-SD 85.3 fL; WBC 8.22 10^3/uL (4.4-10.8)
[2021-05-02 06:53] LABS: Anion Gap 3.6 mmol/L (3-11); BUN 17 mg/dL (7-18); CO2 28.4 mmol/L (21.0-32.0); CREATININE 0.7 mg/dL (0.55-1.02); Calcium 8.1 mg/dL (8.5-10.1); Chloride 109 mmol/L (98-107); Glucose 127 mg/dL (74-106); Magnesium 2.4 mg/dL (1.8-2.4); Potassium 4.6 mmol/L (3.5-5.1); Sodium 141 mmol/L (136-145)
[2021-05-02] MEDS: ACETAMINOPHEN 1,000 MG/100 ML BTL 400 MG IVPB (07:21)
[2021-05-02] MEDS: Folic Acid 1 MG TAB PO (07:56)
[2021-05-02] MEDS: Thiamine 100 MG TAB PO (07:56)
[2021-05-02] MEDS: Multivitamin TAB 1 TAB PO (07:56)
[2021-05-02] MEDS: Nystatin POWDER 60 GM JAR TP ×3 (08:18→20:08)
--- NOTE | 2021-05-02 08:36 | CMPROGNOTE_ITS ---
- If Service Date Differs Date of service: 05/02/21 Time of Service: 08:36 Care Management Progress Note S/O:Devi was sitting up in a chair when CM met with her. She had just ambulated with PT but was only able to take 4 steps before she felt hot and needed to stop. Her daughter-in law Roopa was also there. Roopa is a physical therapist in an acute rehab facility associated with [facility] (former [facility]) and stated that if rehab is recommended, her employer indicated that he would accept a referral for Devi. It is unclear if that will be necessary or if Devi would be able to follow the program that involves at least 3 hours of PT each day. Devi was provided with a list of SNFs in the areas closest to where she lives by CM and will review them with her family bridgette. A: Devi is a 75 year old woman admitted on 05/01/21 with a hip fracture P: Devi's discharge plan is not clear at this time. She has surgery yesterday and may need a short rehab stay prior to returning home. CM will continue to support Devi and assess for discharge planning concerns.
[2021-05-02] MEDS: Pantoprazole 40 MG TABCR PO (09:47)
--- NOTE | 2021-05-02 09:54 | PT.INIE ---
Date of service: 05/02/21 Time of Service: 09:54 PT Notes Visit Reasons: Left Subtrochanteric Femur Fracture Physical Therapy Inpatient Initial Evaluation Date: 05/02/2021 Referring Doctor: Wilson Fragoso MD PT Orders: PT CONSULT: Status post ortho surgery. Status post IMN fixation of left hip fracture Precautions: Fall. Standard. WBAT on left LE with AD. Patient Profile/Admitting Diagnosis: Devi is a 75-year-old female with subtrochanteric fracture of the left femur due to a fall on her left side and is status post intramedullary nailing on postoperative day 1. PMHX: Medical History (Updated 05/01/21 @ 09:56 by Thiago Garg) Autoimmune hepatitis Breast cyst Cataract Colitis Lipoma Morbid obesity Primary sclerosing cholangitis Rheumatoid arthritis Surgical History (Updated 05/01/21 @ 09:31 by Thiago Garg) H/O colonoscopy History of esophagogastroduodenoscopy (EGD) Social History/Home Situation: Lives with in a private home with one-step to enter with rails on both sides. There is a step up that leads to the living room and another set of 3 steps that lead to kitchen. Patient is independent with all aspects of ADLs prior to admission. Did not use any assistive device. Equipment Owned/DME: None Subjective: Agreeable to PT consult. Reports 0/10 pain in the left hip at rest, 2?3/10 pain with weight bearing. Complained of being increasingly warm throughout ambulation activity. Denies chest pain, headache, and lightheadedness throughout session. Objective: General Observation: Supine in bed. IV access in left UE. Dumont catheter in place. Telemetry monitoring in place. Obese. Mental Status: Alert and oriented as to person, place, time, and purpose. Able to pay attention, focus, and respond appropriately. Pain: 3/10 in in L hip at rest, 2?3/10 with weight bearing. Premedicated by Nurse Anand with IV Toradol to help with pain management during mobility assessment. Vital Signs: HR high of 130s bpm and low of 99 bpm at rest. Oxygen saturation of 96% on room air. ROM: Right Upper Extremity: Shoulder Flexion WFL. Shoulder abduction WFL. Elbow flexion WFL. Wrist flexion WFL. Functional opening and closing of hand WFL. Left Upper Extremity: Shoulder Flexion WFL. Shoulder abduction WFL. Elbow flexion WFL. Wrist flexion WFL. Functional opening and closing of hand WFL. Right Lower Extremity: Hip flexion WFL. Hip abduction WFL. Knee flexion WFL. Ankle dorsiflexion WFL. Ankle plantarflexion WFL. Left Lower Extremity: Hip flexion lacks 50% of available range of motion due to pain. Hip abduction limited to about 20 degrees while supine in bed due to discomfort. Knee flexion WFL. Ankle dorsiflexion WFL. Ankle plantarflexion WFL. Strength: Right Upper Extremity: Shoulder flexors 4/5. Shoulder abductors 4/5. Elbow flexors 4/5. Elbow extensors 4/5. Police Booking Officer strong. Left Upper Extremity: Shoulder flexors 4/5. Shoulder abductors 4/5. Elbow flexors 4/5. Elbow extensors 4/5. Police Booking Officer strong. Right Lower Extremity: Hip flexors 4/5. Hip abductors 4/5. Knee flexors 4/5. Knee extensors 4/5. Ankle dorsiflexors 4/5. Ankle plantarflexors 4/5. Left Lower Extremity: Hip flexors 4-/5. Hip abductors 4-/5. Knee flexors 4-/5. Knee extensors 4-/5. Ankle dorsiflexors 4-/5. Ankle plantarflexors 4-/5. Bed Mobility/Transfers: Supine to sit minimal assist Stand to sit contact-guard assist Bed to reclining chair most Gait: Instructed patient with level surface ambulation of 8 steps + 1/2 turn + two step backs requiring minimal assist. Carlie decreased. Gait antalgic. Step-to gait pattern. Reported 2?3/10 pain with weight bearing Balance: Static Sitting: Normal Dynamic Sitting: Good Static Standing: Fair Dynamic Standing: Fair Special Tests: Mobility Limitations Standardized Measure [facility] AM-PAC 6 clicks Basic Mobility Inpatient Short Form: Raw Score: 17 CMS Score: 51% deficit Informed Consent/Education: Patient was instructed in purpose of PT consult and plan of care. Agreeable to proceed with established PT POC to achieve personal goals. Instructions given in performing muscle setting exercises for the hip and the knee to minimize pain. She was also instructed with ankle pumping exercises to minimize swelling and prevent formation in bilateral legs. See exercise sheet for details. Assessment: Devi demonstrates functional mobility decline due to postoperative status and quires the use of a front wheeled walker for all mobility ADL performance, independence with transfers ambulation S performance, generalized weakness, and impaired gait pattern. Patient presents with clinical signs and symptoms consistent with current/admitting diagnoses that have resulted to mobility limitations, gait instability, generalized weakness, and overall ADL decline as demonstrated by the following impairment level findings: 1. Decreased strength to left LE major muscle groups 2. Impaired sitting/standing balance 3. Impaired activity tolerance 4. Limitation of joint range of motion in L hip 5. Shortness of breath 6. Pain and postoperative swelling in L hip Impairments are contributing to the following functional limitations: 1. Decline in bed mobility skills 2. Decline in transfer skills 3. Difficulty with ambulation without assistive device and physical assistance 4. Increased completion time for mobility ADL performance 5. Increased risk for falls 6. Difficulty with managing steps alone safely 7. Inability to thrive at home at this time Patient is assessed as a 54948 moderate complexity based on the following: History: 75-year-old female with past medical history as indicated above Examination: Demonstrable impairment in strength, balance, and mobility level with underlying impairments and functional limitations as exhibited above as well as deficit score of 51% utilizing the [facility] Mobility Inpatient Short Form Presentation: Evolving Decision Makin moderate complexity Goals: Goals X1 week 1. Supine-Sit independent 2. Sit-Supine independent 3. Sit-Stand contact-guard assist 4. Stand-Sit contact-guard assist with bariatric FWW 5. Bed-Chair contact-guard assist with bariatric FWW 6. Chair-Bed contact-guard assist with bariatric FWW 7. Contact-guard assist gait on level surface with use of bariatric FWW for at least 100 feet without report of pain nor dyspnea 8. Contact-guard assist stair negotiation while holding onto rails for at least 3 steps without report of pain nor dyspnea 9. Independent with home exercise program 10. Good static and dynamic standing balance/tolerance Plan of Care/Treatment Plan: 1-2x/day, 7 days/week x 1 week. Plan of care has been reviewed with the GROOVING MACHINE OPERATOR providing the service under Physical Therapy direction. Initiate Physical Therapy intervention for pain management as needed, strengthening, bed mobility, transfers, gait, stairs, balance training, and use of assistive device. DISCHARGE RECOMMENDATIONS: SNF versus home health PT TREATMENT CODE/TIME: 9716 2 x 30 minutes, 9753 0 x 24 minutes beginning at 9:54 AM. Thank you for the opportunity to participate in the care of this patient. Suzanne Nelson PT, DPT, CLT [facility] [place], [place]
[2021-05-02] MEDS: Ketorolac 15 MG/ML VIAL IVP (10:05)
[2021-05-02] MEDS: Normal Saline Flush 10 ML SYR (10:06)
--- NOTE | 2021-05-02 13:01 | W.NUTRFU ---
Date of service: 05/02/21 Time of Service: 13:01 Nutritional Follow up NOTE: Assessment 75yr old female with severe obesity came off npo for dinner last night and no intake data to asses at this time. Admission for L hip fx with hx of a-fib, RA/AI hepatitis. Weight has been stable ? although would benefit from purposeful/healthy weight loss. Etoh was elevated and pt given banana bag and now on po MVI and thiamin. Folate status still low. Estimated nutrition needs are 1375kcals (25kcal/kg of IBW), 55-66g protein (1-1.2g/kg IBW) and 3075mL fluid (obese adult pt method). Diagnosis: Excessive alcohol intake AEB elevated Etoh lab as well as pt. history. Class 3 obesity AEB BMI >50. Intervention: Will evaluate PO intake now that HH diet order is in effect (no concerns at this time). Recommend current A1C d/t morbid obesity and elevated FPG glu x2 days and vitamin D test d/t excessive adiposity and low calcium this morning. Suggest po folic acid in addition to what?s in her MVI if folate status continues to be low. Monitoring and evaluation: Will monitor nutrition significant labs, po intake and weight. Napoleon Díaz, NDTR, landscape maintenance internship Time Spent in Nutritional Counseling and Treatment: 0
--- NOTE | 2021-05-02 13:24 | W.PM.PROGNOT ---
Date of Service Date of service: 05/02/21 Time of Service: 12:39 Assessment and Plan Assessment and plan (1) Intertrochanteric fracture of left femur: Status: Acute Assessment and plan: Devi is s/p IMN of left femur fracture. She is doing well. I am very impressed with how well she has done. At this point, with the progress she has made, it is quite possible that she returns home with HHPT/VNA. We should still prepare for SNF discharge but it is possible based on how she does today and tomorrow. She may WBAT with assistive devices. PO pain control recommended. DVT prophylaxis may begin today. D/C Dumont. Qualifiers: Encounter type: initial encounter Fracture type: closed Fracture alignment: displaced Qualified Code(s): S72.142A - Displaced intertrochanteric fracture of left femur, initial encounter for closed fracture Subjective Subjective Interval history since last seen: Devi reports to be doing well. She has minimal pain. She was able to ambulate for about 8 steps and into the chair. She reports a mild increase in pain with ambulating. She feels much better than from before surgery. No acute complaints or issues. Tolerating a diet. Dumont still in place. Exam Narrative Exam Narrative: Sitting up in the chair. NAD. AAOx3. LLE is not rotated or shortened. +ADF/APF/EHL/FHL. SILT DP/SP/Tib. Objective Last Vital Signs Temp 37.1 C 05/02/21 08:05 Pulse 74 05/02/21 08:05 Resp 19 05/02/21 08:05 BP 100/67 05/02/21 08:05 Pulse Ox 94 05/02/21 08:05 Laboratory Results - last 24 hr 05/02/21 05/02/21 06:13 06:13 WBC 8.22 RBC 2.21 L Hgb 9.7 L Hct 27.9 L MCV 126.2 H MCH 43.9 H MCHC 34.8 RDW 18.5 H Plt Count 218 MPV 10.6 Immature Gran % 1.5 Neutrophils % 86.4 Lymphocytes % 3.4 Monocytes % 8.5 Eosinophils % 0.0 Basophils % 0.2 Nucleated RBC % 3 Absolute Neutrophils 7.10 H Absolute Lymphocytes 0.28 L Absolute Monocytes 0.70 Absolute Eosinophils 0.00 Absolute Basophils 0.02 Sodium 141 Potassium 4.6 Chloride 109 H Carbon Dioxide 28.4 Anion Gap 3.6 BUN 17 D Creatinine 0.7 Estimated GFR/1.73 m2 >= 60.00 Glucose 127 H Calcium 8.1 L Magnesium 2.4 PAWSS Have you Been Recently Intoxicated or Drunk Within the Last 30 days?: No Have you Ever Experienced Previous Episodes of Alcohol Withdrawal?: No Have you ever Experienced Withdrawal Seizures?: No Have you ever Experienced Delirium Tremens(DT)s?: No Have you ever undergone Alcohol Rehabilitation Treatment (i.e, inpt ot outpatient treatment programs)?: No Have you ever Experienced Blackouts?: No Have you ever Combined Alcohol with other Downers within the last 90 days?: No Have you ever Combined Alcohol with any other Substance of Abuse during the last 90 days?: No Positive Blood Alcohol level on Presentation? [PCS.BAL]: No Evidence of Increased Autonomic Activity (i.e. HR>120, tremor, sweating, agitation, nausea)?: No Result: 0
--- NOTE | 2021-05-02 14:48 | PHA.REVIEW ---
Pharmacy Admission Review - Admission Clinical Review (Last Updated 05/01/21 @ 09:31 by Thiago Garg) Intertrochanteric fracture of left femur (Acute) Atrial fibrillation (Acute) Subtrochanteric fracture of left femur (Acute) Morbid obesity (Acute) No Known Allergies Allergy (Unverified 05/01/21 05:18) Resuscitation Status Full Code Height 5 ft 1 in Weight 125.9 kg - Renal Dosing Renal Dosing: BUN 17 mg/dL (7-18) D 05/02/21 06:13 Creatinine 0.7 mg/dL (0.55-1.02) 05/02/21 06:13 Medications needing adjustments: Reviewed (Crcl ~85.1 mL/min using adjusted body weight, current meds okay.) - Anticoagulation Anticoagulation: Hgb 9.7 g/dL (11.2-15.7) L 05/02/21 06:13 Hct 27.9 % (36.0-46.0) L 05/02/21 06:13 Plt Count 218 10^3/uL (130-400) 05/02/21 06:13 Creatinine 0.7 mg/dL (0.55-1.02) 05/02/21 06:13 DVT Prophylaxis: Reviewed (Provider mentioned starting DVT prophylaxis today, none currently ordered.) - Opiate Usage Evaluate Pain Scale/Pains Meds: Reviewed Scheduled Bowel Reg ordered if on Opiates?: No (has PRN meds ordered) - Relevant Labs Sodium 141 mmol/L (136-145) 05/02/21 06:13 Potassium 4.6 mmol/L (3.5-5.1) 05/02/21 06:13 Chloride 109 mmol/L (98-107) H 05/02/21 06:13 Magnesium 2.4 mg/dL (1.8-2.4) 05/02/21 06:13 Electrolytes, C-Reactive P, ESR: Reviewed - DM Control DM Control: Glucose 127 mg/dL (74-106) H 05/02/21 06:13 Insulin Dosing: N/A - Heart Failure/IA EF%, REAL's, B-Blockers, Diuretics: N/A - BP Control BP Control: Blood Pressure 100/67 Blood Pressure 101/69 If elevated: N/A - Qtc Review If Elevated: Reviewed (QTc 477 on admission, has PRN ondansetron ordered.) - IV to PO Switch IV Medications: Intervened (Will ask provider about changing acetaminophen to PO as pt is taking other meds.) - Home Meds Home Med List reviewed: Reviewed Relevent Home Meds Not ordered & why?: ciprofloxacin - Current meds Current Medication Order Review: Reviewed - Comments Comments/Follow Ups: Watch VS, H/H, labs, and for med changes (IV to PO). Antibiotic Activity - Pharmacy Antibiotic Review Pharmacy Antibiotic Activity: D/C antibiotic (Post-op cefazolin course finished and discontinued.)
--- NOTE | 2021-05-02 15:35 | W.PM.PROGNOT ---
Date of Service Date of service: 05/02/21 Time of Service: 15:36 Assessment and Plan Assessment and plan (1) Subtrochanteric fracture of left femur: Status: Acute Assessment and plan: S/p IM nailing by Dr Hancock 05/01/21. Doing well post-op. Pain controlled. Encouraged IS (showed her how to use it) and schedule bowel regimen. Continue PT. Plan is for discharge home over the weekend with home health services. (2) Atrial fibrillation: Status: Acute Assessment and plan: Transition to PO lopressor. Start anticoagulation (ok with orthopedics). Keep on tele. Rate controlled. (3) Morbid obesity: Status: Chronic Assessment and plan: BMI 52.4. Recommend outpatient sleep apnea testing. (4) Primary sclerosing cholangitis: Status: Chronic Assessment and plan: Continue outpatient therapy (5) Autoimmune hepatitis: Status: Chronic Assessment and plan: Continue outpatient therapy. I have encouraged the patient not to drink alcohol (6) Alcohol abuse: Status: Chronic Assessment and plan: Monitor for signs of EtOH withdrawal on CIWA. Continue MVI, thiamine, folate (does have folate deficiency). (7) Discharge planning issues: Status: Acute Assessment and plan: Full code anticipate discharge home over the weekend with home health PT/OT. Discussed with Dr Hancock (8) DVT prophylaxis: Status: Acute Assessment and plan: Start therapeutic apixaban Subjective Subjective Interval history since last seen: Ms Yousif is doing well. Dumont catheter is out. Pain is controlled. No BM yet, but not uncomfortable. Denies dizziness, chest pain, shortness of breath. Endorses a nonproductive cough. Denies n/v. Exam Narrative Exam Narrative: General: Pleasant Elderly female who is having very subtle abdominal breathing of which she is unaware, A&Ox3, comfortable on RA without cyanosis HEENT: EOMI, MMM Heart: RRR, no m/r/g Lungs: crackles at R base Abdomen: soft, nontender, nondistended Extremities: trace edema BLE's, L hip incision dressed - c/d/i Objective Last Vital Signs Temp 37.1 C 05/02/21 08:05 Pulse 74 05/02/21 08:05 Resp 19 05/02/21 08:05 BP 100/67 05/02/21 08:05 Pulse Ox 94 05/02/21 08:05 Laboratory Results - last 24 hr 05/02/21 05/02/21 06:13 06:13 WBC 8.22 RBC 2.21 L Hgb 9.7 L Hct 27.9 L MCV 126.2 H MCH 43.9 H MCHC 34.8 RDW 18.5 H Plt Count 218 MPV 10.6 Immature Gran % 1.5 Neutrophils % 86.4 Lymphocytes % 3.4 Monocytes % 8.5 Eosinophils % 0.0 Basophils % 0.2 Nucleated RBC % 3 Absolute Neutrophils 7.10 H Absolute Lymphocytes 0.28 L Absolute Monocytes 0.70 Absolute Eosinophils 0.00 Absolute Basophils 0.02 Sodium 141 Potassium 4.6 Chloride 109 H Carbon Dioxide 28.4 Anion Gap 3.6 BUN 17 D Creatinine 0.7 Estimated GFR/1.73 m2 >= 60.00 Glucose 127 H Calcium 8.1 L Magnesium 2.4 PAWSS Have you Been Recently Intoxicated or Drunk Within the Last 30 days?: No Have you Ever Experienced Previous Episodes of Alcohol Withdrawal?: No Have you ever Experienced Withdrawal Seizures?: No Have you ever Experienced Delirium Tremens(DT)s?: No Have you ever undergone Alcohol Rehabilitation Treatment (i.e, inpt ot outpatient treatment programs)?: No Have you ever Experienced Blackouts?: No Have you ever Combined Alcohol with other Downers within the last 90 days?: No Have you ever Combined Alcohol with any other Substance of Abuse during the last 90 days?: No Positive Blood Alcohol level on Presentation? [PCS.BAL]: No Evidence of Increased Autonomic Activity (i.e. HR>120, tremor, sweating, agitation, nausea)?: No Result: 0
--- NOTE | 2021-05-02 19:36 | PT.INTREAT ---
Date of service: 05/02/21 Time of Service: 13:53 PT Notes Visit Reasons: Left Subtrochanteric Femur Fracture Inpatient Physical Therapy Treatment Note [facility] Date: 05/02/2021 PRECAUTIONS: WBAT L, Activity as tolerated, Fall SUBJECTIVE: Devi is pleasant and agreeable to participating in PT. She states that she is experiencing some anxiety regarding moving her leg and the pain. She reports that she is hopeful that she can go home upon discharge with services. OBJECTIVE: PAIN: Patient c/o L hip area pain with ther ex, transfers, and gait training BED MOBILITY/TRANSFERS Sit-stand: CGA with max cues Stand-sit: CGA with max cues GAIT Assistive Device: FWW Weight bearing: WBAT L Assist: CGA Distance: 4 steps x2 Deviation: Antalgic gait, short step height and length, cues for gait mechanics for reduced L hip discomfort THEREX: Patient was instructed in a LE strengthening and stabilization program, completed in both seated and long-sitting positions, as per flow sheet. Patient requires verbal cueing and tactile assist for exercise completion throughout. ASSESSMENT: Patient was able to transfer with CGA, although requires max cueing for safety and technique. She was only able to walk 4 steps requiring great encouragement. PLAN: Recommend SNF level rehab upon discharge at this time, due to global weakness and deconditioning. TREATMENT CODE/TIME: 46 minutes; 84276 x2, 30365 (13:53)
--- NOTE | 2021-05-02 19:50 | DI.RAD_ITS ---
Exam(s) XR PORTABLE CHEST AP EXAM: XR PORTABLE CHEST AP CLINICAL HISTORY: ?CHF - dry cough, crackles TECHNIQUE: 2D digital imaging was performed. COMPARISON: No exams were available for comparison FINDINGS: LUNGS: Leads overlie the right lower lobe. Clear. No pleural abnormality seen. HEART: Enlarged. MEDIASTINUM: Tortuous aorta. BONES: Unremarkable. IMPRESSION: Cardiomegaly. No acute pulmonary findings. DATA REPOSITORY: RADIATION DOSE DELIVERED:
[2021-05-02] MEDS: Docusate Sodium 100 MG/10 ML CUP PO (20:08)
[2021-05-02] MEDS: Apixaban 5 MG TAB PO (20:09)
[2021-05-02] MEDS: Metoprolol 25 MG TAB PO (20:09)
[2021-05-02] MEDS: Acetaminophen 325 MG TAB 650 MG PO (20:28)
--- NOTE | 2021-05-02 20:46 | DI.VRAD_ITS ---
PROCEDURE INFORMATION: Exam: XR Chest Exam date and time: 05/02/2021 3:38 PM Age: 75 years old Clinical indication: Cough TECHNIQUE: Imaging protocol: XR of the chest. Views: 1 view. COMPARISON: No relevant prior studies available. FINDINGS: Tubes, catheters and devices: EKG monitoring leads overlie the thoracic wall. Lungs: There is no evidence of focal pulmonary consolidation. Pleural spaces: Probable small bilateral pleural effusions. No pneumothorax. Heart/Mediastinum: There is mild cardiomegaly. Bones/joints: Unremarkable. IMPRESSION: 1. Mild cardiomegaly with normal pulmonary vascularity. 2. Probable small bilateral pleural effusions. Dictated and Authenticated by: Reji Kulkarni MD. Ordering:MELVIN Betts MD
[2021-05-03] VITALS (8 sets, daily range): BP systolic 101–110; BP diastolic 55–71; PULSE 73–80; RESP 18–22; TEMP 36.4–37.1; O2SAT 95–99
[2021-05-03] MEDS: Metoprolol 25 MG TAB PO (02:32)
[2021-05-03] MEDS: Multivitamin TAB 1 TAB PO (07:34)
[2021-05-03] MEDS: Thiamine 100 MG TAB PO (07:34)
[2021-05-03] MEDS: Spironolactone 25 MG TAB 50 MG PO (07:34)
[2021-05-03] MEDS: Apixaban 5 MG TAB PO ×2 (07:35→20:10)
[2021-05-03] MEDS: Nystatin POWDER 60 GM JAR TP ×3 (07:35→20:33)
[2021-05-03] MEDS: Folic Acid 1 MG TAB PO (07:35)
[2021-05-03] MEDS: Pantoprazole 40 MG TABCR PO (07:35)
[2021-05-03 07:43] LABS: HCT 28.7 % (36.0-46.0); MCH 43.5 pg (27.0-33.0); MCHC 34.8 % (32.0-36.0); MCV 124.8 fL (80-95); MPV 10.8 fL (8.0-11.0); Platelet Count 209 10^3/uL (130-400); RDW 19.7 % (11.7-14.6); WBC 8.05 10^3/uL (4.4-10.8)
[2021-05-03 07:50] LABS: BUN 25 mg/dL (7-18); CREATININE 0.9 mg/dL (0.55-1.02); Calcium 8.2 mg/dL (8.5-10.1); Chloride 108 mmol/L (98-107); Glucose 121 mg/dL (74-106); Magnesium 2.2 mg/dL (1.8-2.4); Potassium 4.5 mmol/L (3.5-5.1); Sodium 140 mmol/L (136-145)
[2021-05-03 08:03] LABS: Absolute Lymphocyte Count 0.81 10^3/uL (1.2-3.4); Absolute Monocyte Count 0.48 10^3/uL (0.1-0.8); Anisocytosis 1+; Bands % 4; Diff Comment Manual Differential; Macrocytosis 2+; Metamyelocytes % 1; Myelocytes % 1; Nucleated RBC 7 %; Polychromasia Present
[2021-05-03] MEDS: Ketorolac 15 MG/ML VIAL IVP (09:08)
[2021-05-03] MEDS: Metoprolol CR 25 MG TABCR PO (09:09)
--- NOTE | 2021-05-03 10:50 | CMPROGNOTE_ITS ---
- If Service Date Differs Date of service: 05/03/21 Time of Service: 10:50 Care Management Progress Note S/O:Devi was sitting up in a chair when CM met with her.She was pleasant but appeared a bit confused. Isa had tried to ambulate with PT earlier but needed to have the steady lift used to get her to the chair. She denies pain but is extremely anxious. Isa is also beginning to show signs of withdrawing from alcohol. CIWA scores have been between 4 and 8 but she is refusing medication. CM spoke with Emilie, Isa's daughter, at length who stated that her mother normally drinks 3-4 very strong drinks, usually whiskey, every night. She also shared that her mother is not very motivated at baseline and is fairly inactive.Emilie informed CM that the family has been noticing increasing confusion and memory loss with Isa that preceded her fall. Isa has procrastinated with supplying CM with SNFs to send referrals to. She asked if she could just think about it over the weekend. CM explained that she will likely be ready for discharge soon and that we need to have a place for her to go. CM sent referrals to all of the SNFs in [facility] where she lives as well as those in [facility] and [facility], the 2 [facility]ing [facility], as they would be the closest. Her daughter felt this was a good plan. If any bed offers are received on Thursday, Isa will be able to choose which one she wishes to accept. A: Devi is a 75 year old woman admitted on 05/01/21 with a hip fracture P: Devi will likely be discharged to a SNF. Referrals have been sent to all of the facilities in [place], [place] and [facility]. Transportation will be determined by final disposition. CM will continue to support Devi and assess for discharge planning concerns.
--- NOTE | 2021-05-03 12:29 | PT.INTREAT ---
Date of service: 05/03/21 Time of Service: 09:38 PT Notes Visit Reasons: Left Subtrochanteric Femur Fracture Inpatient Physical Therapy Treatment Note [facility] Date: 05/03/2021 PRECAUTIONS: WBAT L, Activity as tolerated, Fall SUBJECTIVE: Devi is pleasant and agreeable to participating in PT. She states that she is experiencing some anxiety regarding moving her leg and the pain. She states that she really wants to go home from here, but recognizes that plan is not a safe or reasonable plan at this time due to level of mobility. She also states that she does not feel that she will do well in an acute rehab setting because I like to take things slow and at my own speed. OBJECTIVE: Patient appears confused, requiring verbalized [id number] instructions for most tasks and activities. She also appears limited by anxiety. PAIN: Patient c/o L hip area pain with ther ex, transfers, and gait training BED MOBILITY/TRANSFERS Supine-sit: Min A with HOB at 50 degrees Sit-supine: Max A x2 with HOB flat Sit-stand: CGA with max cues in a.m.; Min A in p.m. Stand-sit: CGA with max cues Bed-chair: STEDY (unable with FWW) Chair-bed: STEDY (unable with FWW) GAIT Assistive Device: FWW Weight bearing: WBAT L Assist: Min A Distance: 3 steps forward/backward in a.m.; 1 step in p.m. Deviation: Antalgic gait, short step height and length, cues for gait mechanics for reduced L hip discomfort, tactile cues for FWW management, assist with L foot advancement THEREX: Patient was instructed in a supine LE strengthening and stabilization program, as per flow sheet. Patient requires verbal cueing and tactile assist for exercise completion throughout. She was able to tolerate static standing in STEDY x5 minutes in a.m., and also completes partial [id number] x5 in STEDY. ASSESSMENT: Patient was able to transfer with CGA, although requires max cueing for safety and technique. Her tolerance for gait training decreased today compared to yesterday, and she required STEDY lift to get to the chair. She required assist with L foot advancement and FWW management. PLAN: Recommend SNF level rehab upon discharge at this time, due to global weakness and deconditioning. TREATMENT CODE/TIME: Session 1: 37 minutes; 82158, 77605 (09:38) Session 2: 51 minutes; 89889 x2, 12011 x2 (14:05)
--- NOTE | 2021-05-03 17:32 | W.PM.PROGNOT ---
Date of Service Date of service: 05/03/21 Time of Service: 12:32 Assessment and Plan Assessment and plan (1) Intertrochanteric fracture of left femur: Status: Acute Assessment and plan: Devi is a 75-year-old who is visiting #2 status post intramedullary nail fixation of the left comminuted intertrochanteric fracture. He has done well. She has been able to mobilize some with physical therapy but still requires assistance to get out of bed. While she is doing well in regards to her mobilization she still require assistance, therefore the best recover in a facility. She is not from this area is transferred from [facility] and her physician primary care sports medicine team is actively working on potential options in that area. She was diagnosed atrial fibrillation on her admission from the emergency department and is now started on apixaban. She may continue that at his recommended dosing. She is weightbearing as tolerated with assistive devices. She should keep the Mepilex dressings on for at least 1 week and keep covered for at least 2 weeks with stable removal at 2 weeks. Follow-up with me or local orthopedic surgeon in 4 weeks. I will update the discharge instructions. Qualifiers: Encounter type: initial encounter Fracture type: closed Fracture alignment: displaced Qualified Code(s): S72.142A - Displaced intertrochanteric fracture of left femur, initial encounter for closed fracture Subjective Subjective Interval history since last seen: Eulalia reports to be doing well. She has been able to mobilize with PT but required some additional assistance today. She is relatively comfortable with no significant increase in pain. She has had no issues with the wounds. She has had a very mild cough but denies fevers or chills. She has tolerated regular diet. Exam Narrative Exam Narrative: Sitting up in the chair having lunch. No acute distress. Evaluation of the left leg shows a grossly normal appearance. The dressings are clean dry and intact. She has intact ankle dorsiflexion, plantarflexion, great toe extension great toe flexion. Objective Laboratory Results - last 24 hr 05/03/21 05/03/21 07:15 07:15 WBC 8.05 RBC 2.30 L Hgb 10.0 L Hct 28.7 L MCV 124.8 H MCH 43.5 H MCHC 34.8 RDW 19.7 H Plt Count 209 MPV 10.8 Immature Gran % 0.0 Neutrophils % 78.0 Band Neutrophils % 4 Lymphocytes % 10.0 Monocytes % 6.0 Eosinophils % 0.0 Basophils % 0.0 Metamyelocytes % 1 Myelocytes % 1 Nucleated RBC % 7 Absolute Neutrophils 6.60 Absolute Lymphocytes 0.81 L Absolute Monocytes 0.48 Absolute Eosinophils 0.00 Absolute Basophils 0.00 RBC Morphology See Below Polychromasia Present Anisocytosis 1+ Macrocytosis 2+ Sodium 140 Potassium 4.5 Chloride 108 H Carbon Dioxide 26.0 Anion Gap 6.0 BUN 25 H Creatinine 0.9 Estimated GFR/1.73 m2 >= 60.00 Glucose 121 H Calcium 8.2 L Magnesium 2.2 PAWSS Have you Been Recently Intoxicated or Drunk Within the Last 30 days?: No Have you Ever Experienced Previous Episodes of Alcohol Withdrawal?: No Have you ever Experienced Withdrawal Seizures?: No Have you ever Experienced Delirium Tremens(DT)s?: No Have you ever undergone Alcohol Rehabilitation Treatment (i.e, inpt ot outpatient treatment programs)?: No Have you ever Experienced Blackouts?: No Have you ever Combined Alcohol with other Downers within the last 90 days?: No Have you ever Combined Alcohol with any other Substance of Abuse during the last 90 days?: No Positive Blood Alcohol level on Presentation? [PCS.BAL]: No Evidence of Increased Autonomic Activity (i.e. HR>120, tremor, sweating, agitation, nausea)?: No Result: 0
--- NOTE | 2021-05-03 18:21 | W.PM.PROGNOT ---
Date of Service Date of service: 05/03/21 Time of Service: 18:21 Assessment and Plan Assessment and plan (1) Subtrochanteric fracture of left femur: Status: Acute Assessment and plan: S/p IM nailing by Dr Fragoso 05/01/21. Will require SNF placement. Pain controlled. Continue PT. I have ensured today that kimmie capella and IS are within reach and re-emphasized that she needed to use them. (2) Atrial fibrillation: Status: Acute Assessment and plan: Switched to long-acting metoprolol today. Continue apixaban (patient will need more counseling). Rate controlled. Ok to d/c tele. (3) Morbid obesity: Status: Chronic Assessment and plan: BMI 52.4. Recommend outpatient sleep apnea testing. (4) Primary sclerosing cholangitis: Status: Chronic Assessment and plan: Continue outpatient therapy (5) Autoimmune hepatitis: Status: Chronic Assessment and plan: Continue outpatient therapy. I have encouraged the patient not to drink alcohol (6) Alcohol abuse: Status: Chronic Assessment and plan: Monitor for signs of EtOH withdrawal on CIWA. CIWA scores were 8, 5, and 8 today, but I see no evidence of withdarwal at the time of my visit. Continue MVI, thiamine, folate (does have folate deficiency). (7) Discharge planning issues: Status: Acute Assessment and plan: Full code Will require SNF on discharge. (8) DVT prophylaxis: Status: Acute Assessment and plan: Continue therapeutic apixaban Subjective Subjective Interval history since last seen: Ms Yousif states that she is having a hard time getting out of bed. She is just not sure how to do it and requires 2 assist. PT feels she would benefit from SNF placement to which the patient is agreeable. The patient states she is a little short of breath while trying to maneuver out of bed to the commode. She denies dizziness, chest pain, nausea. Exam Narrative Exam Narrative: General: Pleasant Elderly female who is dypsneic while trying to get out of bed, appears jaundiced (chronic), A&Ox3 HEENT: EOMI, MMM Heart: seemingly RRR, no m/r/g Lungs: CTAB anteriorly. Abdomen: soft, nontender, nondistended Extremities: trace edema BLE's, L hip incision dressed - c/d/i Objective Last Vital Signs Temp 36.4 C L 05/03/21 15:46 Pulse 73 05/03/21 15:46 Resp 18 05/03/21 15:46 BP 102/69 05/03/21 15:46 Pulse Ox 97 05/03/21 15:46 Laboratory Results - last 24 hr 05/03/21 05/03/21 07:15 07:15 WBC 8.05 RBC 2.30 L Hgb 10.0 L Hct 28.7 L MCV 124.8 H MCH 43.5 H MCHC 34.8 RDW 19.7 H Plt Count 209 MPV 10.8 Immature Gran % 0.0 Neutrophils % 78.0 Band Neutrophils % 4 Lymphocytes % 10.0 Monocytes % 6.0 Eosinophils % 0.0 Basophils % 0.0 Metamyelocytes % 1 Myelocytes % 1 Nucleated RBC % 7 Absolute Neutrophils 6.60 Absolute Lymphocytes 0.81 L Absolute Monocytes 0.48 Absolute Eosinophils 0.00 Absolute Basophils 0.00 RBC Morphology See Below Polychromasia Present Anisocytosis 1+ Macrocytosis 2+ Sodium 140 Potassium 4.5 Chloride 108 H Carbon Dioxide 26.0 Anion Gap 6.0 BUN 25 H Creatinine 0.9 Estimated GFR/1.73 m2 >= 60.00 Glucose 121 H Calcium 8.2 L Magnesium 2.2 PAWSS Have you Been Recently Intoxicated or Drunk Within the Last 30 days?: No Have you Ever Experienced Previous Episodes of Alcohol Withdrawal?: No Have you ever Experienced Withdrawal Seizures?: No Have you ever Experienced Delirium Tremens(DT)s?: No Have you ever undergone Alcohol Rehabilitation Treatment (i.e, inpt ot outpatient treatment programs)?: No Have you ever Experienced Blackouts?: No Have you ever Combined Alcohol with other Downers within the last 90 days?: No Have you ever Combined Alcohol with any other Substance of Abuse during the last 90 days?: No Positive Blood Alcohol level on Presentation? [PCS.BAL]: No Evidence of Increased Autonomic Activity (i.e. HR>120, tremor, sweating, agitation, nausea)?: No Result: 0
[2021-05-03] MEDS: Acetaminophen 325 MG TAB 650 MG PO (20:10)
[2021-05-04 03:31] VITALS: BP 113/63; PULSE 76; RESP 18; TEMP 36.8; O2SAT 95
[2021-05-04 07:32] LABS: Abs Immature Grans 0.42 10^3/uL (0.0-0.06); Absolute Basophil Count 0.04 10^3/uL (0.0-0.2); Absolute Eosinophil Count 0.25 10^3/uL (0.0-0.7); Absolute Monocyte Count 0.98 10^3/uL (0.1-0.8); Absolute Neutrophil Count 5.58 10^3/uL (1.2-6.7); Basophils % 0.5; Eosinophils % 3.1; HCT 26.6 % (36.0-46.0); HGB 9.3 g/dL (11.2-15.7); Immature Grans % 5.3; Lymphocytes % 8.8; MCH 43.9 pg (27.0-33.0); MCV 125.5 fL (80-95); Monocytes % 12.3; Nucleated RBC 6 %; Platelet Count 195 10^3/uL (130-400); RBC 2.12 10^6/uL (3.93-5.22); RDW 19.8 % (11.7-14.6); RDW-SD 90.7 fL; WBC 7.97 10^3/uL (4.4-10.8)
[2021-05-04 07:47] LABS: Anion Gap 5.2 mmol/L (3-11); BUN 22 mg/dL (7-18); CO2 28.8 mmol/L (21.0-32.0); CREATININE 0.6 mg/dL (0.55-1.02); Calcium 7.9 mg/dL (8.5-10.1); Chloride 108 mmol/L (98-107); Glucose 96 mg/dL (74-106); Potassium 4.3 mmol/L (3.5-5.1); Sodium 142 mmol/L (136-145)
[2021-05-04] MEDS: Nystatin POWDER 60 GM JAR TP ×2 (08:31→21:07)
[2021-05-04] MEDS: Multivitamin TAB 1 TAB PO (08:32)
[2021-05-04] MEDS: Spironolactone 25 MG TAB 50 MG PO (08:32)
[2021-05-04] MEDS: Pantoprazole 40 MG TABCR PO (08:32)
[2021-05-04] MEDS: Metoprolol CR 25 MG TABCR PO (08:32)
[2021-05-04] MEDS: Thiamine 100 MG TAB PO (08:32)
[2021-05-04] MEDS: Apixaban 5 MG TAB PO ×2 (08:32→21:08)
[2021-05-04] MEDS: Folic Acid 1 MG TAB PO (08:32)
[2021-05-04 08:57] VITALS: BP 103/68; PULSE 87; RESP 18; TEMP 37.7; O2SAT 95
[2021-05-04 11:30] VITALS: BP 101/67; PULSE 87; RESP 18; TEMP 36.9; O2SAT 97
--- NOTE | 2021-05-04 13:12 | PT.INTREAT ---
PT Notes Visit Reasons: Left Subtrochanteric Femur Fracture Inpatient Physical Therapy Treatment Note [facility] Date: 05/04/21 SUBJECTIVE:Devi states that she is nervous about walking. I'm afraid it's going to hurt. OBJECTIVE: [] BED MOBILITY/TRANSFERS pt already sitting in recliner this am Sit-stand:min/ mod A of 1 Stand-sit: CGA GAIT Assistive Device: FWW Weight bearing: AT left Assist: CGA Distance: wt shifting S/S x 10-15 as well as attempts at marching in place 1 min x2. THEREX: LE strengthening while seated. Required assistance with left LE as well as encouragement. See flowsheet for details. ASSESSMENT: tolerated session well. Requires lots of encouragement. Tends to do better with small step commands. Seems to be easily overwhelmed. PLAN: will continue to work on her strength and functional mobility following POC TREATMENT CODE/TIME: 35 min beginning at 0930. [id number], [id number]
--- NOTE | 2021-05-04 13:39 | PGE_ITS ---
Date of Service Date of service: 05/04/21 Time of Service: 13:39 Assessment and Plan Assessment and plan (1) Subtrochanteric fracture of left femur: Status: Acute Assessment and plan: S/p IM nailing by Dr Fragoso 05/01/21. Will require SNF placement. Pain controlled. Continue PT. (2) Atrial fibrillation: Status: Acute Assessment and plan: Cont long acting metoprolol Continue apixaban (patient will need more counseling). Rate controlled. (3) Morbid obesity: Status: Chronic Assessment and plan: BMI 52.4. Recommend outpatient sleep apnea testing. (4) Primary sclerosing cholangitis: Status: Chronic Assessment and plan: Continue outpatient therapy (5) Autoimmune hepatitis: Status: Chronic Assessment and plan: Continue outpatient therapy. I have encouraged the patient not to drink alcohol (6) Alcohol abuse: Status: Chronic Assessment and plan: Monitor for signs of EtOH withdrawal on CIWA. CIWA scores were 8, 5, and 8 yesterday. No evidence of withdrawal during my evaluation today. Continue MVI, thiamine, folate (does have folate deficiency). (7) Discharge planning issues: Status: Acute Assessment and plan: Full code Will require SNF on discharge. (8) DVT prophylaxis: Status: Acute Assessment and plan: Continue therapeutic apixaban Subjective Subjective Patient reports: no new complaints, feels better, tolerating a regular diet and afebrile; denies vomiting and shortness of breath Interval history since last seen: Still requires assistance with transfers and ambulation. Exam Const General: cooperative and well developed Nutritional Appearance: obese Orientation: alert, awake and oriented x3 HENMT Head: normal to inspection, no palpable skull fracture, normocephalic and atraumatic Ears: hearing grossly normal bilaterally General nose exam: external nose normal Face and sinus: normal facial exam Eyes General: appearance normal, both eyes and all related structures Sclera: sclerae normal Pupils: PERRL Neck Neck: normal visual inspection, full ROM and no JVD Resp Effort & Inspection: normal respiratory effort and able to speak in complete sentences Auscultation: clear to auscultation bilaterally Cardio Jugular venous pressure: no JVD Palpation: normal PMI Rate: regular rate Rhythm: abnormal rhythm irregularly irregular GI Inspection: normal to inspection and obesity Palpation: soft and no hepatosplenomegaly Skin General skin exam: jaundice Lesions: no lesions Rashes: no rashes Trauma: no lacerations or abrasions Hair: normal Neuro General: patient alert, patient awake and patient oriented x3 Cranial Nerves: CN's II-XI intact bilaterally Cognition: normal cognition Speech: speech normal Motor: muscle tone normal throughout and strength 5/5 throughout (I did not test strength nor ROM in her left leg d/t her hip frx) Sensory Exam: no sensory deficits noted Extrem General: normal to inspection Right lower extremity: foot Details: abnormal to inspection Details: a deformity Location: of the great toe and of the hallux valgus Left lower extremity: foot Details: normal capillary refill and abnormal to inspection Details: a deformity Location: of the hallux valgus Psych Appearance: grossly normal Mental Status: mental status grossly normal Speech and Movement: speech and movement normal Mood: congruent mood Affect: normal affect Attitude: cooperative Thought Process: normal Thought Content: normal Insight: insight good Judgment: judgment good Objective Last Vital Signs Temp 37.7 C H 05/04/21 08:57 Pulse 87 05/04/21 08:57 Resp 18 05/04/21 08:57 BP 103/68 05/04/21 08:57 Pulse Ox 95 05/04/21 08:57 Laboratory Results - last 24 hr 05/04/21 05/04/21 06:31 06:31 WBC 7.97 RBC 2.12 L Hgb 9.3 L Hct 26.6 L MCV 125.5 H MCH 43.9 H MCHC 35.0 RDW 19.8 H Plt Count 195 MPV 11.0 Immature Gran % 5.3 Neutrophils % 70.0 Lymphocytes % 8.8 Monocytes % 12.3 Eosinophils % 3.1 Basophils % 0.5 Nucleated RBC % 6 Absolute Neutrophils 5.58 Absolute Lymphocytes 0.70 L Absolute Monocytes 0.98 H Absolute Eosinophils 0.25 Absolute Basophils 0.04 Sodium 142 Potassium 4.3 Chloride 108 H Carbon Dioxide 28.8 Anion Gap 5.2 BUN 22 H Creatinine 0.6 D Estimated GFR/1.73 m2 >= 60.00 Glucose 96 Calcium 7.9 L Magnesium 2.0 PAWSS Have you Been Recently Intoxicated or Drunk Within the Last 30 days?: No Have you Ever Experienced Previous Episodes of Alcohol Withdrawal?: No Have you ever Experienced Withdrawal Seizures?: No Have you ever Experienced Delirium Tremens(DT)s?: No Have you ever undergone Alcohol Rehabilitation Treatment (i.e, inpt ot outpatient treatment programs)?: No Have you ever Experienced Blackouts?: No Have you ever Combined Alcohol with other Downers within the last 90 days?: No Have you ever Combined Alcohol with any other Substance of Abuse during the last 90 days?: No Positive Blood Alcohol level on Presentation? [PCS.BAL]: No Evidence of Increased Autonomic Activity (i.e. HR>120, tremor, sweating, a gitation, nausea)?: No Result: 0
[2021-05-04 16:00] VITALS: BP 110/70; PULSE 88; RESP 20; TEMP 37.4; O2SAT 96
[2021-05-04 19:27] VITALS: BP 113/78; PULSE 91; RESP 20; TEMP 36.7; O2SAT 97
[2021-05-04 23:18] VITALS: BP 113/71; PULSE 98; RESP 20; TEMP 36.9; O2SAT 95
[2021-05-05 03:00] VITALS: BP 100/65; PULSE 79; RESP 20; TEMP 37.2; O2SAT 97
[2021-05-05 07:49] VITALS: BP 114/76; PULSE 59; RESP 20; TEMP 36.7; O2SAT 95
[2021-05-05] MEDS: Nystatin POWDER 60 GM JAR TP ×2 (09:16→20:56)
[2021-05-05] MEDS: Metoprolol CR 25 MG TABCR PO (09:17)
[2021-05-05] MEDS: Spironolactone 25 MG TAB 50 MG PO (09:18)
[2021-05-05] MEDS: Thiamine 100 MG TAB PO (09:19)
[2021-05-05] MEDS: Pantoprazole 40 MG TABCR PO (09:19)
[2021-05-05] MEDS: Multivitamin TAB 1 TAB PO (09:20)
[2021-05-05] MEDS: Folic Acid 1 MG TAB PO (09:20)
[2021-05-05] MEDS: Apixaban 5 MG TAB PO ×2 (09:20→20:56)
[2021-05-05] MEDS: Normal Saline Flush 10 ML SYR IVP (09:26)
[2021-05-05 11:21] VITALS: BP 101/65; PULSE 79; RESP 20; TEMP 37.1; O2SAT 97
--- NOTE | 2021-05-05 12:22 | PT.INTREAT ---
PT Notes Visit Reasons: Left Subtrochanteric Femur Fracture Inpatient Physical Therapy Treatment Note [facility] Date: 05/05/21 SUBJECTIVE: Devi states that she feels a little stronger, but is still unable to get herself from bed to chair. I just can't seem to lift my feet off the floor. I still need to use the machine to get me from place to place. OBJECTIVE: [] BED MOBILITY/TRANSFERS pt already sitting in recliner this am. Sit-stand: min A of 1 Stand-sit: CGA GAIT Assistive Device: STEDY lift Weight bearing: AT left Assist: CGA Distance: march in place 1 min x 2 Deviation: cues for proper hand placement and sequencing of sit to stand THEREX: global LE strength and stabilizations ex while seated. See flowsheet for details. ASSESSMENT: tolerated session well. Seemed to be less anxious with getting onto her feet. Was abl eto support herself better hanging onto the STEDY lift while performing wt shifting and march in place. PLAN: will continue to progress her strength and functional mobility following PT POC. TREATMENT CODE/TIME: 35 min beginning at 0835. [id number], [id number].
--- NOTE | 2021-05-05 13:58 | W.PM.PROGNOT ---
Date of Service Date of service: 05/05/21 Time of Service: 13:58 Assessment and Plan Assessment and plan (1) Subtrochanteric fracture of left femur: Status: Acute Assessment and plan: S/p IM nailing by Dr Fragoso 05/01/21. Will require SNF placement. Pain controlled. Continue PT; today she tolerated her session well. Able to support herself better when hanging onto the STEDY lift while shifting and marching in place. (2) Atrial fibrillation: Status: Acute Assessment and plan: Cont long acting metoprolol Continue apixaban (patient will need more counseling). Rate controlled. (3) Morbid obesity: Status: Chronic Assessment and plan: BMI 52.4. Recommend outpatient sleep apnea testing. (4) Primary sclerosing cholangitis: Status: Chronic Assessment and plan: Continue outpatient therapy (5) Autoimmune hepatitis: Status: Chronic Assessment and plan: Continue outpatient therapy. I have encouraged the patient not to drink alcohol (6) Alcohol abuse: Status: Chronic Assessment and plan: Monitor for signs of EtOH withdrawal on CIWA. CIWA scores were 8, 5, and 8 yesterday. No evidence of withdrawal during my evaluation today. Continue MVI, thiamine, folate (does have folate deficiency). (7) Discharge planning issues: Status: Acute Assessment and plan: Full code Will require SNF on discharge. Desires a facility close to her home. (8) DVT prophylaxis: Status: Acute Assessment and plan: Continue therapeutic apixaban Subjective Subjective Patient reports: no new complaints, tolerating a regular diet and afebrile; denies vomiting and shortness of breath Interval history since last seen: Still requires assistance with transfers and ambulation. Hip dressing saturated with serosanguineous fluid. Exam Const General: cooperative and well developed Nutritional Appearance: obese Orientation: alert, awake and oriented x3 HENMT Head: normal to inspection, normocephalic and atraumatic Ears: hearing grossly normal bilaterally General nose exam: external nose normal Face and sinus: normal facial exam Eyes General: appearance normal, both eyes and all related structures Sclera: sclerae normal Neck Neck: normal visual inspection, full ROM and no JVD Chest Chest: normal inspection of the chest and normal palpation of entire chest wall Resp Effort & Inspection: normal respiratory effort and able to speak in complete sentences Auscultation: clear to auscultation bilaterally Cardio Jugular venous pressure: no JVD Palpation: normal PMI Rate: regular rate Rhythm: abnormal rhythm GI Inspection: normal to inspection and obesity Palpation: soft and no hepatosplenomegaly Back/Spine/Pelvis Pelvis: other (left groin with bandages in place) Skin General skin exam: jaundice Lesions: no lesions Rashes: no rashes Trauma: no lacerations or abrasions Hair: normal Neuro General: patient alert, patient awake, patient oriented x3 and moves all extremities Cognition: normal cognition Speech: speech normal Motor: muscle tone normal throughout and strength 5/5 throughout (I did not test strength nor ROM in her left leg d/t her hip frx) Sensory Exam: no sensory deficits noted Extrem General: normal to inspection Right lower extremity: foot Details: abnormal to inspection Details: a deformity Left lower extremity: foot Psych Appearance: grossly normal Mental Status: mental status grossly normal Speech and Movement: speech and movement normal Mood: congruent mood Affect: normal affect Attitude: cooperative Thought Process: normal Thought Content: normal Insight: insight good Judgment: judgment good Objective Last Vital Signs Temp 37.1 C 05/05/21 11:21 Pulse 79 05/05/21 11:21 Resp 20 05/05/21 11:21 BP 101/65 05/05/21 11:21 Pulse Ox 97 05/05/21 11:21 PAWSS Have you Been Recently Intoxicated or Drunk Within the Last 30 days?: No Have you Ever Experienced Previous Episodes of Alcohol Withdrawal?: No Have you ever Experienced Withdrawal Seizures?: No Have you ever Experienced Delirium Tremens(DT)s?: No Have you ever undergone Alcohol Rehabilitation Treatment (i.e, inpt ot outpatient treatment programs)?: No Have you ever Experienced Blackouts?: No Have you ever Combined Alcohol with other Downers within the last 90 days?: No Have you ever Combined Alcohol with any other Substance of Abuse during the last 90 days?: No Positive Blood Alcohol level on Presentation? [PCS.BAL]: No Evidence of Increased Autonomic Activity (i.e. HR>120, tremor, sweating, agitation, nausea)?: No Result: 0
[2021-05-05 15:51] VITALS: BP 102/66; PULSE 77; RESP 20; TEMP 36.5; O2SAT 98
[2021-05-05 19:43] VITALS: BP 99/65; PULSE 89; RESP 18; TEMP 37.6; O2SAT 96
[2021-05-05] MEDS: Docusate Sodium 100 MG/10 ML CUP PO (20:56)
[2021-05-05 22:48] VITALS: BP 105/65; PULSE 78; RESP 20; TEMP 36.6; O2SAT 97
[2021-05-06 03:33] VITALS: BP 107/69; PULSE 79; RESP 18; TEMP 35.7; O2SAT 96
[2021-05-06 07:19] LABS: Abs Immature Grans 0.41 10^3/uL (0.0-0.06); HGB 9.6 g/dL (11.2-15.7); MCH 44.2 pg (27.0-33.0); MCHC 34.3 % (32.0-36.0); MPV 10.8 fL (8.0-11.0); Platelet Count 201 10^3/uL (130-400); RBC 2.17 10^6/uL (3.93-5.22); RDW-SD 94.5 fL; WBC 6.49 10^3/uL (4.4-10.8)
[2021-05-06 07:25] LABS: ALT 23 U/L (14-59); AST 46 U/L (15-37); Albumin 2.2 g/dL (3.4-5.0); Alkaline Phosphatase 72 U/L (46-116); BUN 15 mg/dL (7-18); Bilirubin, Total 4.1 mg/dL (0.2-1.0); CREATININE 0.5 mg/dL (0.55-1.02); Chloride 109 mmol/L (98-107); Glucose 94 mg/dL (74-106); Potassium 4.2 mmol/L (3.5-5.1); Sodium 144 mmol/L (136-145)
[2021-05-06] MEDS: Milk of Magnesia 30 ML CUP PO (07:57)
[2021-05-06] MEDS: Spironolactone 25 MG TAB 50 MG PO (07:57)
[2021-05-06] MEDS: Multivitamin TAB 1 TAB PO (07:57)
[2021-05-06] MEDS: Docusate Sodium 100 MG/10 ML CUP PO ×2 (07:57→19:39)
[2021-05-06] MEDS: Metoprolol CR 25 MG TABCR PO (07:57)
[2021-05-06] MEDS: Thiamine 100 MG TAB PO (07:58)
[2021-05-06] MEDS: Pantoprazole 40 MG TABCR PO (07:58)
[2021-05-06] MEDS: Apixaban 5 MG TAB PO ×2 (07:58→19:39)
[2021-05-06] MEDS: Folic Acid 1 MG TAB PO (07:58)
[2021-05-06] MEDS: Normal Saline Flush 10 ML SYR IVP ×2 (08:00→19:42)
[2021-05-06 08:04] LABS: Absolute Basophil Count 0.13 10^3/uL (0.0-0.2); Absolute Eosinophil Count 0.45 10^3/uL (0.0-0.7); Absolute Lymphocyte Count 0.65 10^3/uL (1.2-3.4); Absolute Monocyte Count 0.97 10^3/uL (0.1-0.8); Absolute Neutrophil Count 3.96 10^3/uL (1.2-6.7); Bands % 2; Diff Comment Manual Differential; Metamyelocytes % 3; Myelocytes % 2; Nucleated RBC 2 %
[2021-05-06 08:05] LABS: Basophilic Stippling Present; Hypochromasia 2+; Macrocytosis 2+; Polychromasia Present
[2021-05-06 08:06] VITALS: BP 119/71; PULSE 83; RESP 18; TEMP 36.7; O2SAT 96
[2021-05-06 08:06] LABS: Poikilocytes 2+
[2021-05-06] MEDS: HYDROcodone 5/Acetaminophen 325 TAB PO ×3 (08:07→19:48)
--- NOTE | 2021-05-06 09:06 | PDOC.CMPRO ---
- If Service Date Differs Date of service: 05/06/21 Time of Service: 09:06 Care Management Progress Note S/O: Devi was sitting up in her chair when CM met with her. She was pleasant and easily engaged in conversation. Devi is aware that CM has no SNF offers at this time near her home in [place]. Unfortunately, [facility] in [place] where she would like to go for SNF does not offer rehab or correction services at this time. Devi is agreeable for CM to look for SNF facilities local to [facility] at this time. CM sent referrals to [facility] and the [facility]. A: Devi is a 75 year old woman admitted on 05/01/21 with a hip fracture P: Devi will likely be discharged to a SNF. Referrals have been sent to all of the facilities in [place], [place] and [facility] and still no bed offer, even after the follow up calls CM made today. CM sent additional SNF referrals to [facility] and the [facility]. Transportation will be determined by Devi's final disposition. CM will continue to support Devi and assess for discharge planning concerns.
--- NOTE | 2021-05-06 12:25 | PGE_ITS ---
Date of Service Date of service: 05/06/21 Time of Service: 12:25 Assessment and Plan Assessment and plan (1) Intertrochanteric fracture of left femur: Status: Acute Assessment and plan: Devi is a 75-year-old who is status post intramedullary fixation of the left hip fracture. She is doing well. Her morbid obesity and age are definitely limiting her ability to progress. However, she has made some progress. It would be up to physical therapy if she is safe to return home with VNA support. However, I do think she is making some progress. There have been no open beds in her region otherwise, no acute medical concerns. I would recommend placing a dressing of Xeroform, 4 x 4's, ABD, Medipore tape over the wounds. The drainage she is having is mostly serous which is going to be related to her positioning and obesity. Continue to weight-bear as tolerated. Continue with anticoagulation for her atrial fibrillation. Follow-up in 4 weeks. Qualifiers: Encounter type: initial encounter Fracture type: closed Fracture align ment: displaced Qualified Code(s): S72.142A - Displaced intertrochanteric fracture of left femur, initial encounter for closed fracture Subjective Subjective Interval history since last seen: Devi reports be doing better. She has been able to ambulate with physical therapy. She was able to get up out of the chair without the study left today. She denies any significant increase in pain. She did have some relief with the hydrocodone. She has no other acute issues. There has been serous drainage on the dressings per nursing report which has required it to be changed a few times. There are still no bed availability is in her home facility. Exam Narrative Exam Narrative: Sitting up in the chair. Comfortable. No acute distress. Evaluation of the left leg shows well approximated incisions. Unfortunately, there is notable serous drainage on the dressing. No surrounding erythema. No significant pain to palpation. Minimal ecchymosis. No pain with gentle internal and external rotation of the left hip. Objective Last Vital Signs Temp 36.7 C 05/06/21 08:06 Pulse 83 05/06/21 08:06 Resp 18 05/06/21 08:06 BP 119/71 05/06/21 08:06 Pulse Ox 96 05/06/21 08:06 Laboratory Results - last 24 hr 05/06/21 05/06/21 06:10 06:10 WBC 6.49 RBC 2.17 L Hgb 9.6 L Hct 28.0 L MCV 129.0 H MCH 44.2 H MCHC 34.3 RDW 20.0 H Plt Count 201 MPV 10.8 Immature Gran % See Differential Neutrophils % 59.0 Band Neutrophils % 2 Lymphocytes % 10.0 Monocytes % 15.0 Eosinophils % 7.0 Basophils % 2.0 Metamyelocytes % 3 Myelocytes % 2 Nucleated RBC % 2 Absolute Neutrophils 3.96 Absolute Lymphocytes 0.65 L Absolute Monocytes 0.97 H Absolute Eosinophils 0.45 Absolute Basophils 0.13 RBC Morphology See Below Polychromasia Present Hypochromasia 2+ Poikilocytosis 2+ Basophilic Stippling Present Macrocytosis 2+ Sodium 144 Potassium 4.2 Chloride 109 H Carbon Dioxide 29.0 Anion Gap 6.0 BUN 15 D Creatinine 0.5 L Estimated GFR/1.73 m2 >= 60.00 Glucose 94 Calcium 8.0 L Total Bilirubin 4.1 H AST 46 H ALT 23 Alkaline Phosphatase 72 Total Protein 5.0 L Albumin 2.2 L PAWSS Have you Been Recently Intoxicated or Drunk Within the Last 30 days?: No Have you Ever Experienced Previous Episodes of Alcohol Withdrawal?: No Have you ever Experienced Withdrawal Seizures?: No Have you ever Experienced Delirium Tremens(DT)s?: No Have you ever undergone Alcohol Rehabilitation Treatment (i.e, inpt ot outpatient treatment programs)?: No Have you ever Experienced Blackouts?: No Have you ever Combined Alcohol with other Downers within the last 90 days?: No Have you ever Combined Alcohol with any other Substance of Abuse during the last 90 days?: No Positive Blood Alcohol level on Presentation? [PCS.BAL]: No Evidence of Increased Autonomic Activity (i.e. HR>120, tremor, sweating, agitation, nausea)?: No Result: 0
[2021-05-06] MEDS: Nystatin POWDER 60 GM JAR TP ×2 (13:27→19:39)
--- NOTE | 2021-05-06 13:32 | W.PM.PROGNOT ---
Date of Service Date of service: 05/06/21 Time of Service: 13:33 Assessment and Plan Assessment and plan (1) Subtrochanteric fracture of left femur: Status: Acute Assessment and plan: S/p IM nailing by Dr Fragoso 05/01/21. Will require SNF placement. Pain controlled. Continue PT; today she tolerated her session well / walked further with walker. Scheduled acetaminophen and has prn hydrocodone for pain. (2) Atrial fibrillation: Status: Acute Assessment and plan: Cont long acting metoprolol Continue apixaban (patient will need more counseling). Rate controlled. (3) Morbid obesity: Status: Chronic Assessment and plan: BMI 52.4. Recommend outpatient sleep apnea testing. (4) Primary sclerosing cholangitis: Status: Chronic Assessment and plan: Continue outpatient therapy (5) Autoimmune hepatitis: Status: Chronic Assessment and plan: Continue outpatient therapy. I have encouraged the patient not to drink alcohol (6) Alcohol abuse: Status: Chronic Assessment and plan: Monitor for signs of EtOH withdrawal on CIWA. CIWA scores were 8, 5, and 8 yesterday. No evidence of withdrawal during my evaluation today. Continue MVI, thiamine, folate (does have folate deficiency). (7) Discharge planning issues: Status: Acute Assessment and plan: Full code Will require SNF on discharge. Desires a facility close to her home. (8) DVT prophylaxis: Status: Acute Assessment and plan: Continue therapeutic apixaban Subjective Subjective Patient reports: feels better, bowel movement and afebrile; denies nausea and vomiting Interval history since last seen: After her first dose of hydrocodone she felt more relaxed and worked better with PT Exam Const General: cooperative and well developed Nutritional Appearance: obese Orientation: alert, awake and oriented x3 HENMT Head: normal to inspection, normocephalic and atraumatic Eyes General: appearance normal, both eyes and all related structures Sclera: sclerae normal Neck Neck: normal visual inspection, full ROM and no JVD Resp Effort & Inspection: normal respiratory effort and able to speak in complete sentences Auscultation: clear to auscultation bilaterally Cardio Jugular venous pressure: no JVD Palpation: normal PMI Rate: regular rate Rhythm: abnormal rhythm irregularly irregular GI Inspection: normal to inspection and obesity Palpation: soft and no hepatosplenomegaly Back/Spine/Pelvis Pelvis: other (left groin with bandages in place) Coccyx: other (left groin with bandages in place) Skin General skin exam: jaundice Lesions: no lesions Rashes: no rashes Trauma: no lacerations or abrasions Hair: normal Neuro General: patient alert, patient awake, patient oriented x3 and moves all extremities Cognition: normal cognition Speech: speech normal Motor: muscle tone normal throughout and strength 5/5 throughout (I did not test strength nor ROM in her left leg d/t her hip frx) Sensory Exam: no sensory deficits noted Extrem General: normal to inspection Right lower extremity: foot Details: abnormal to inspection Details: a deformity Location: of the great toe and of the hallux valgus Left lower extremity: foot Details: normal capillary refill and abnormal to inspection Details: a deformity Location: of the hallux valgus Psych Appearance: grossly normal Mental Status: mental status grossly normal Speech and Movement: speech and movement normal Mood: congruent mood Affect: normal affect Attitude: cooperative Thought Process: normal Thought Content: normal Insight: insight good Judgment: judgment good Objective Last Vital Signs Temp 36.7 C 05/06/21 08:06 Pulse 83 05/06/21 08:06 Resp 18 05/06/21 08:06 BP 119/71 05/06/21 08:06 Pulse Ox 96 05/06/21 08:06 Laboratory Results - last 24 hr 05/06/21 05/06/21 06:10 06:10 WBC 6.49 RBC 2.17 L Hgb 9.6 L Hct 28.0 L MCV 129.0 H MCH 44.2 H MCHC 34.3 RDW 20.0 H Plt Count 201 MPV 10.8 Immature Gran % See Differential Neutrophils % 59.0 Band Neutrophils % 2 Lymphocytes % 10.0 Monocytes % 15.0 Eosinophils % 7.0 Basophils % 2.0 Metamyelocytes % 3 Myelocytes % 2 Nucleated RBC % 2 Absolute Neutrophils 3.96 Absolute Lymphocytes 0.65 L Absolute Monocytes 0.97 H Absolute Eosinophils 0.45 Absolute Basophils 0.13 RBC Morphology See Below Polychromasia Present Hypochromasia 2+ Poikilocytosis 2+ Basophilic Stippling Present Macrocytosis 2+ Sodium 144 Potassium 4.2 Chloride 109 H Carbon Dioxide 29.0 Anion Gap 6.0 BUN 15 D Creatinine 0.5 L Estimated GFR/1.73 m2 >= 60.00 Glucose 94 Calcium 8.0 L Total Bilirubin 4.1 H AST 46 H ALT 23 Alkaline Phosphatase 72 Total Protein 5.0 L Albumin 2.2 L PAWSS Have you Been Recently Intoxicated or Drunk Within the Last 30 days?: No Have you Ever Experienced Previous Episodes of Alcohol Withdrawal?: No Have you ever Experienced Withdrawal Seizures?: No Have you ever Experienced Delirium Tremens(DT)s?: No Have you ever undergone Alcohol Rehabilitation Treatment (i.e, inpt ot outpatient treatment programs)?: No Have you ever Experienced Blackouts?: No Have you ever Combined Alcohol with other Downers within the last 90 days?: No Have you ever Combined Alcohol with any other Substance of Abuse during the last 90 days?: No Positive Blood Alcohol level on Presentation? [PCS.BAL]: No Evidence of Increased Autonomic Activity (i.e. HR>120, tremor, sweating, agitation, nausea)?: No Result: 0
--- NOTE | 2021-05-06 15:28 | TELEFU_ITS ---
Date of service: 05/06/21 Time of Service: 15:28 Nutritional Follow up NOTE: Devi?s intake from trays reported as good since po intake on heart healthy diet order, which resumed at dinner last Thursday - although significant shift in weight noted over the last 3 days down 17.8kg (suspect scale error) and will monitor this. Glucose wnl at 16 and this morning. Still would recommend follow up labs on vitamin d and folate levels and A1C prior to discharge. Napoleon Díaz NDTR ? Senior Security Architect Time Spent in Nutritional Counseling and Treatment: 0
[2021-05-06 15:36] VITALS: BP 106/72; PULSE 82; RESP 16; TEMP 36.2; O2SAT 97
--- NOTE | 2021-05-06 16:59 | PT.INTREAT ---
Date of service: 05/06/21 Time of Service: 09:17 PT Notes Visit Reasons: Left Subtrochanteric Femur Fracture Inpatient Physical Therapy Treatment Note [facility] Date: 05/06/2021 PRECAUTIONS: Activity as tolerated, fall, WBAT L SUBJECTIVE: Devi is pleasant and agreeable to participating in PT. She states that she is feeling somewhat better and that she has received medication for anxiety, which she believes will allow her to progress with PT. OBJECTIVE: PAIN: Patient c/o L hip discomfort with transfers and ther ex BED MOBILITY/TRANSFERS Rolling L/R: Max A Sit-supine: Max A x2 with HOB flat Sit-stand: CGA Stand-sit: CGA GAIT Assistive Device: FWW Weight bearing: WBAT L Assist: Min A + CGA in a.m.; Min A x2 in p.m. Distance: 6 steps + 5 steps + 8 steps in a.m.; 10 steps + 6 steps in p.m. Deviation: Assist with FWW management, max verbal cueing for sequence and for off-loading L LE THEREX: Patient was instructed in a seated LE strengthening and stabilization program, as per flow sheet. She continues to require assist for exercise completion due to weakness and pain. TOILETING: Patient toileted with assist ASSESSMENT: Patient demonstrates improved mobility today compared to previous PT sessions. She continues to require significant cueing and assist for FWW management and gait sequence. She was able to complete transfers with CGA only, although continues to require [id number] cueing. PLAN: Continue with gait and transfer training as well as global strengthening for continued improvement in mobility and activity tolerance. Continue to recommend SNF-level rehab placement due to global weakness and inability to perform functional tasks with ease. TREATMENT CODE/TIME: Session 1: 41 minutes; 58273 x2, 97182 (09:17) Session 2: 44 minutes; 39304 x2, 09425 (13:38)
[2021-05-06 18:51] VITALS: BP 110/76; PULSE 84; RESP 18; TEMP 37; O2SAT 97
[2021-05-06 23:25] VITALS: BP 113/76; PULSE 82; RESP 18; TEMP 37.1; O2SAT 97
[2021-05-07 03:32] VITALS: BP 108/75; PULSE 102; RESP 22; TEMP 36.1; O2SAT 98
[2021-05-07] MEDS: Milk of Magnesia 30 ML CUP PO (08:55)
[2021-05-07] MEDS: Docusate Sodium 100 MG/10 ML CUP PO (08:55)
[2021-05-07] MEDS: Bisacodyl 5 MG TABEC PO (08:55)
[2021-05-07] MEDS: Spironolactone 25 MG TAB 50 MG PO (08:55)
[2021-05-07] MEDS: Pantoprazole 40 MG TABCR PO (08:56)
[2021-05-07] MEDS: Multivitamin TAB 1 TAB PO (08:56)
[2021-05-07] MEDS: Thiamine 100 MG TAB PO (08:56)
[2021-05-07] MEDS: Apixaban 5 MG TAB PO (08:56)
[2021-05-07] MEDS: Metoprolol CR 25 MG TABCR PO (08:56)
[2021-05-07] MEDS: Normal Saline Flush 10 ML SYR IVP (08:56)
[2021-05-07] MEDS: Folic Acid 1 MG TAB PO (08:56)
[2021-05-07] MEDS: HYDROcodone 5/Acetaminophen 325 TAB PO (08:57)
[2021-05-07] MEDS: Nystatin POWDER 60 GM JAR TP (08:57)
[2021-05-07 09:16] VITALS: BP 103/63; PULSE 71; RESP 16; TEMP 36.7; O2SAT 99
[2021-05-07] MEDS: Senna TAB 2 TAB PO (09:18)
[2021-05-07] MEDS: Polyethylene Glycol 3350 17 GM PACKET PO (09:18)
--- NOTE | 2021-05-07 11:49 | W.PM.DS.N ---
Date of service: 05/07/21 Time of Service: 11:50 DS: Diagnosis Discharge Diagnosis (1) Subtrochanteric fracture of left femur: Status: Acute (2) Atrial fibrillation: Status: Acute (3) Morbid obesity: Status: Chronic (4) Primary sclerosing cholangitis: Status: Chronic (5) Autoimmune hepatitis: Status: Chronic (6) Alcohol abuse: Status: Chronic Discharge Plan Disposition Patient Disposition: SNF (LEVEL 1) [facility] Condition: Stable Discharge Details Reason For Visit: Left Subtrochanteric Femur Fracture Admit Date/Time: 05/01/21 03:26 Admit Provider: Thiago Garg Attending Provider: Thiago Garg Primary Care Provider: [facility] Course Hospital Course: This is a 75 yr old female resident of [place], [place] who presented to [facility] after a mechanical fall resulting in left hip pain and found to have a subtrochanteric hip fracture. Unfortunately there was no beds available locally and she was transported here for repair. She was noted to be in new afib on arrival, rate controlled. She underwent surgical repair by Dr Fragoso on 05/01/21. Post operative course unremarkable. She was started on a beta quinton, rate controlled. she was also started on eliquis with no evidence of bleeding. \ she was eating and drinking with no issues. voiding well, some constipation but no abdominal pain, nausea or vomiting. she was started on aggressive bowel regimen. She was slow to reambulate and will not be safe for discharge to home so referrals placed. she has been accepted at [facility] and is being transported by ground EMS. discharge discussed with Dr Ward. Home Meds and New Rx's Prescriptions: New Eliquis 5 mg Tablet 5 mg PO BID Qty: 60 RF: 0 polyethylene glycol 3350 17 gram Powder In Packet 17 g PO DAILY Qty: 30 RF: 0 pantoprazole 40 mg Tablet,Delayed Release (Dr/Ec) 40 mg PO DAILY@0730 Qty: 30 RF: 0 metoprolol succinate 25 mg Tablet Extended Release 24 Hr 25 mg PO DAILY Qty: 30 RF: 0 docusate sodium 50 mg/5 mL Liquid 100 mg PO BID Qty: 240 RF: 0 hydrocodone-acetaminophen 5-325 mg Tablet 1 tab PO Q4H PRN PRNQty: 12 RF: 0 Continued ursodiol 500 mg Tablet 500 mg PO TID RF: 0 mercaptopurine 50 mg Tablet 50 mg PO BID RF: 0 spironolactone 25 mg Tablet 50 mg PO DAILY RF: 0 No Action ciprofloxacin HCl 750 mg Tablet 750 mg PO QWEEK RF: 0 Discharge Instructions Instructions: A-fib (Atrial Fibrillation) (DC), Hip Fracture (ED) Additional Instructions: Hip Fracture Orthopaedic Discharge Instructions Activity: You have no restrictions on movement or positioning, but do not try to force what you do. You will find some stiffness and weakness with hip flexion (lifting your knee). Attempt to spend a few moments throughout the day standing and taking a few steps. You should use the walker at all times for assistance. Dressing: Keep the surgical dressing in place for at least one week. This Mepilex dressing may be changed if it becomes soiled or unraveled. The wound may stay on for two weeks but keep the wound covered with something for 2 weeks. At 2 weeks, the corina may be removed. Follow-up: [address] Fragoso, or local orthopaedic surgeon If you have any acute concerns or questions, please do not hesitate to contact the office at [phone]. You may contact Dr. Fragoso with any questions after hours through the hospital at [phone] or on his cell phone at [phone]. Referrals: Wilson Fragoso MD [ [facility]] - Activity:: Activity as Tolerated Equipment/Supplies:: No Equipment Needed Diet:: As Tolerated Discharge Orders Discharge Orders: Discharge Order (Routine); Ordered 05/07/21 Ordered By: Anat Knox Discharge Data Discharge Date/Time-TO BE ENTERED AT DEPARTURE: 05/07/21 13:27 DS: Summary Time Spent with Patient providing and/or coordinating discharge services: Greater than 30 minutes Status at Discharge Functional status at discharge: uses cane/walker Overall status at discharge: patient is not back to baseline Mental Status: mental status grossly normal Speech and Movement: speech and movement normal Mood: congruent mood Affect: normal affect Exam Const General: cooperative, healthy appearing and comfortable Nutritional Appearance: obese Orientation: alert, awake and oriented x3 HENMT Head: normal to inspection, normocephalic and atraumatic Face and sinus: normal facial exam Mouth: oral mucosae normal Chest Chest: normal inspection of the chest Resp Effort & Inspection: normal respiratory effort Auscultation: clear to auscultation bilaterally and diminished lung sounds (bases) Cardio Rate: regular rate Rhythm: regular rhythm GI Inspection: normal to inspection and distended Palpation: soft Skin Lesions: lesion noted (surgical dressing intact, no drainage, no surrounding erythema) Rashes: no rashes Neuro General: patient alert, patient awake, patient oriented x3 and no focal motor deficits Cognition: normal cognition Speech: speech normal Extrem General: edema (left greater than right) Laterality: bilateral Psych Appearance: grossly normal Mental Status: mental status grossly normal Speech and Movement: speech and movement normal Mood: congruent mood Affect: normal affect Attitude: cooperative Thought Content: normal Insight: insight good Judgment: judgment good DS: Data Vitals/I&O Vitals and I&O: Vital Signs Temperature 36.7 C 05/07/21 09:16 Temperature Source Tympanic 05/07/21 09:16 Pulse 71 05/07/21 09:16 Pulse Rhythm Regular 05/07/21 10:39 Respiratory Rate 16 05/07/21 09:16 Respiratory Effort Non-Labored 05/07/21 10:39 Respiratory Depth Normal 05/07/21 10:39 Respiratory Pattern Normal 05/07/21 10:39 Blood Pressure 103/63 05/07/21 09:16 Pulse Oximetry 99 05/07/21 09:16 Respiratory End-tidal CO2 24 05/01/21 18:35 Oxygen Delivery Method Room Air 05/07/21 10:39 Oxygen Flow Rate 0 05/07/21 10:39 Pain Level 0 05/07/21 09:16 Comment 05/01/21 07:30 Intake & Output 05/06/21 05/06/21 05/07/21 11:59 23:59 11:59 Intake Total 250 / 250 300 / 300 Output Total 400 / 1200 800 / 1200 450 / 450 Balance -400 / -950 -550 / -950 -150 / -150 Weight 112.4 kg Intake: IV Oral 240 / 240 300 / 300 Output: Urine 400 / 1200 800 / 1200 450 / 450 Other: Urine Color Dark Ashli Straw Dark Ashli Urine Appearance Sediment Clear Mucous Threads Urine Odor Strong Strong Strong Comment in two total voids today Voiding Methods Bedside Commode Bedside Commode Bedside Commode [facility] Medical History (Updated 05/02/21 @ 15:40 by Roxane Garcia MD) Autoimmune hepatitis Breast cyst Cataract Colitis Lipoma Morbid obesity Primary sclerosing cholangitis Rheumatoid arthritis Surgical History (Updated 05/01/21 @ 09:31 by Thiago Garg) H/O colonoscopy History of esophagogastroduodenoscopy (EGD) Family History (Updated 05/01/21 @ 09:33 by Thiago Garg) Father Lung cancer in his 70's Mother , in 80's unknown cause No problems noted. Sister , in her 90's unknown cause No problems noted. Social History (Updated 05/01/21 @ 09:35 by Thiago Garg) Smoking/Tobacco Use Status: Never Smoking risk assessment performed?: Yes Alcohol Intake: current Alcohol Intake frequency: 3 or more drinks per day Alcohol type: hard liquor Details: drinks 4 to 5 mixed drinks per night Drug use: Never Substance use type: does not use Do you feel safe at home: Yes History History 2 Para Hx # Term Pregnancies 2 Multiple births Hx # Pregnancies Ectopic pregnancies AB induced Hx Number of Living Children 2 AB spontaneous
[2021-05-07] MEDS: Bisacodyl 10 MG SUPP PR (12:07)
[2021-05-07 13:02] LABS: Source Nasal/Nares
[2021-05-07 13:54] LABS: COVID-19 PCR Negative (Negative)
--- NOTE | 2021-05-07 15:44 | PT.INTREAT ---
Date of service: 05/07/21 Time of Service: 07:58 PT Notes Visit Reasons: Left Subtrochanteric Femur Fracture Inpatient Physical Therapy Treatment Note [facility] Date: 05/07/2021 PRECAUTIONS: Activity as tolerated, fall, WBAT L SUBJECTIVE: Devi is pleasant and agreeable to participating in PT. She states that she is feeling somewhat better although knows she is far from her baseline level of function and agrees that SNF placement is best. OBJECTIVE: PAIN: Patient c/o L hip discomfort with transfers and ther ex BED MOBILITY/TRANSFERS Supine-sit: Mod A x2 Sit-stand: Min A x2 Stand-sit: CGA x2 Bed-chair: STEDY GAIT: Unable. STEDY life from bed-chair TOILETING: Patient toileted with assist ASSESSMENT: Patient demonstrates decreased ability to perform functional daily tasks today, due to participating in PT session prior to pain mediciation administration. PLAN: Discharge to SNF-level rehab later today, per provider. TREATMENT CODE/TIME: 22 minutes; 46460 (07:58)
--- NOTE | 2021-05-07 17:08 | PDOC.CMDIS ---
- If Service Date Differs Date of service: 05/07/21 Time of Service: 17:08 LACE Index Scoring Tool - Questions: Length of Stay (in days): 4 - 6 Acuity (Admit via E.D.?): Yes E.D. Visits: 1 - Answers: Total Score: 8 Risk of Readmission: Low Risk Care Management Discharge Reason for Hospitalization: Fracture of left femur Discharge Plan: Discharge to [facility] for SNF via EMS arranged by CM. Follow up with community providers and discharge plan of care. Patient/Family Education Needs: Review discharge instructions and plan to follow up with community providers. ask me three. Services Needed at Discharge: Residential Facility ([facility]), Transportation (Via EMS )
--- NOTE | 2021-05-07 17:30 | PT.INDS ---
Date of service: 05/07/21 PT Notes Visit Reasons: Left Subtrochanteric Femur Fracture Physical Therapy Inpatient Discharge Summary Date: 05/07/2021 Date of service: 05/02/2021 through 05/07/2021 This is a clinical summary of care provided for the duration of dates listed above. No charge was made in the completion of this documentation. Referring Doctor: Wilson Fragoso MD PT Orders: PT CONSULT: Status post ortho surgery. Status post IMN fixation of left hip fracture Precautions: Fall. Standard. WBAT on left LE with AD. Patient Profile/Admitting Diagnosis: Devi is a 75-year-old female with subtrochanteric fracture of the left femur due to a fall on her left side and is status post intramedullary nailing on postoperative day 1. PMHX: Medical History (Updated 05/01/21 @ 09:56 by Thiago Garg) Autoimmune hepatitis Breast cyst Cataract Colitis Lipoma Morbid obesity Primary sclerosing cholangitis Rheumatoid arthritis Surgical History (Updated 05/01/21 @ 09:31 by Thiago Garg) H/O colonoscopy History of esophagogastroduodenoscopy (EGD) Social History/Home Situation: Lives with in a private home with one-step to enter with rails on both sides. There is a step up that leads to the living room and another set of 3 steps that lead to kitchen. Patient is independent with all aspects of ADLs prior to admission. Did not use any assistive device. Equipment Owned/DME: None Subjective: NT. See most recent WAGE ADJUSTER notes. Objective: General Observation: NT. See most recent WAGE ADJUSTER notes. Mental Status: NT. See most recent WAGE ADJUSTER notes. Pain: NT. See most recent WAGE ADJUSTER notes. Vital Signs: NT. See most recent WAGE ADJUSTER notes. ROM: Right Upper Extremity: Shoulder Flexion WFL. Shoulder abduction WFL. Elbow flexion WFL. Wrist flexion WFL. Functional opening and closing of hand WFL. Left Upper Extremity: Shoulder Flexion WFL. Shoulder abduction WFL. Elbow flexion WFL. Wrist flexion WFL. Functional opening and closing of hand WFL. Right Lower Extremity: Hip flexion WFL. Hip abduction WFL. Knee flexion WFL. Ankle dorsiflexion WFL. Ankle plantarflexion WFL. Left Lower Extremity: Hip flexion lacks 50% of available range of motion due to pain. Hip abduction limited to about 20 degrees while supine in bed due to discomfort. Knee flexion WFL. Ankle dorsiflexion WFL. Ankle plantarflexion WFL. Strength: Right Upper Extremity: Shoulder flexors 4/5. Shoulder abductors 4/5. Elbow flexors 4/5. Elbow extensors 4/5. System Development Engineer strong. Left Upper Extremity: Shoulder flexors 4/5. Shoulder abductors 4/5. Elbow flexors 4/5. Elbow extensors 4/5. System Development Engineer strong. Right Lower Extremity: Hip flexors 4/5. Hip abductors 4/5. Knee flexors 4/5. Knee extensors 4/5. Ankle dorsiflexors 4/5. Ankle plantarflexors 4/5. Left Lower Extremity: Hip flexors 4-/5. Hip abductors 4-/5. Knee flexors 4-/5. Knee extensors 4-/5. Ankle dorsiflexors 4-/5. Ankle plantarflexors 4-/5. Bed Mobility/Transfers: Supine to sit minimal assist x2 Stand to sit contact-guard assist x2 Gait: Instructed patient with level surface ambulation of up to 10 steps only with minimal assist of two. Required the use of the STEDY lift due to increasing risk for falls. Carlie decreased. Continues to report moderate pain on the left hip. Balance: Static Sitting: Normal Dynamic Sitting: Good Static Standing: Fair Dynamic Standing: Fair Assessment: Devi continues to demonstrate functional mobility decline due to postoperative status and quires the use of a front wheeled walker for all mobility ADL performance, independence with transfers ambulation S performance, generalized weakness, and impaired gait pattern. Patient continues to present with clinical signs and symptoms consistent with current/admitting diagnoses that have resulted to mobility limitations, gait instability, generalized weakness, and overall ADL decline as demonstrated by the following impairment level findings: 1. Decreased strength to left LE major muscle groups 2. Impaired sitting/standing balance 3. Impaired activity tolerance 4. Limitation of joint range of motion in L hip 5. Shortness of breath 6. Pain and postoperative swelling in L hip Impairments are continuing to contribute to the following functional limitations: 1. Decline in bed mobility skills 2. Decline in transfer skills 3. Difficulty with ambulation without assistive device and physical assistance 4. Increased completion time for mobility ADL performance 5. Increased risk for falls 6. Difficulty with managing steps alone safely 7. Inability to thrive at home at this time Goals: Goals X1 week 1. Supine-Sit independent NOT MET 2. Sit-Supine independent NOT MET 3. Sit-Stand contact-guard assist NOT MET 4. Stand-Sit contact-guard assist with bariatric FWW NOT MET 5. Bed-Chair contact-guard assist with bariatric FWW NOT MET 6. Chair-Bed contact-guard assist with bariatric FWW NOT MET 7. Contact-guard assist gait on level surface with use of bariatric FWW for at least 100 feet without report of pain nor dyspnea NOT MET 8. Contact-guard assist stair negotiation while holding onto rails for at least 3 steps without report of pain nor dyspnea NOT MET 9. Independent with home exercise program NOT MET 10. Good static and dynamic standing balance/tolerance NOT MET DISCHARGE RECOMMENDATIONS: Patient will benefit from longterm facility placement for continued skilled physical therapy services in order to progress mobility level, strength, and balance in preparation for a safe discharge to home. TREATMENT CODE/TIME: SD Thank you for the opportunity to participate in the care of this patient. Suzanne Nelson PT, DPT, CLT [facility] [place], [place]
== END 2021-05-07 13:27 | disposition skilled nursing facility (03) | DRG 481 ==
PROVIDERS: Family Medicine; Internal Medicine; Student in an Organized Health Care Education/Training Program; Admitting Provider Internal Medicine; PCP Family Medicine; Visit Provider Internal Medicine
PROC: 0QS706Z Reposition Left Upper Femur with Intramedullary Internal Fixation Device, Open Approach (ICD-10-PCS; CPT 27245; principal; 2021-05-01 16:30)
DX: S72.142A Displaced intertrochanteric fracture of left femur, initial encounter for closed fracture (principal); K83.01 Primary sclerosing cholangitis; Z68.43 Body mass index [BMI] 50.0-59.9, adult; W01.0XXA Fall on same level from slipping, tripping and stumbling without subsequent striking against object, initial encounter; E66.01 Morbid (severe) obesity due to excess calories; M06.9 Rheumatoid arthritis, unspecified; K75.4 Autoimmune hepatitis; Z20.822 Contact with and (suspected) exposure to COVID-19; F10.10 Alcohol abuse, uncomplicated; E53.8 Deficiency of other specified B group vitamins; K59.00 Constipation, unspecified
CPT/HCPCS: 27245; 36415; 80048; 80053; 86850; 86900; 86901; 87635; 90662; 97110; 97162; 97530; 99222; 71045; 73501; 80320; 82248; 82607; 82746; 83735; 84443; 85025; 93005; 93010; 93306; 99223; 99232; 99233; 99239; J0131; J0690; J1100; J1885; J2001; J2370; J2405

== ENCOUNTER 2021-05-10 08:43 | Outpatient (REF) | payer SELFPAY ==
[2021-05-10 11:08] LABS: Abs Immature Grans 0.25 10^3/uL (0.0-0.06); Absolute Basophil Count 0.09 10^3/uL (0.0-0.2); Absolute Eosinophil Count 0.53 10^3/uL (0.0-0.7); Absolute Lymphocyte Count 0.63 10^3/uL (1.2-3.4); Absolute Monocyte Count 1.28 10^3/uL (0.1-0.8); Absolute Neutrophil Count 3.25 10^3/uL (1.2-6.7); Basophils % 1.5; Eosinophils % 8.8; HCT 31.6 % (36.0-46.0); HGB 10.8 g/dL (11.2-15.7); Immature Grans % 4.1; Lymphocytes % 10.4; MCH 44.8 pg (27.0-33.0); MCHC 34.2 % (32.0-36.0); MCV 131.1 fL (80-95); MPV 10.4 fL (8.0-11.0); Monocytes % 21.2; Nucleated RBC 4 %; Platelet Count 353 10^3/uL (130-400); RBC 2.41 10^6/uL (3.93-5.22); RDW 20.4 % (11.7-14.6); RDW-SD 98.3 fL; WBC 6.03 10^3/uL (4.4-10.8)
[2021-05-10 11:16] LABS: ALT 23 U/L (14-59); AST 31 U/L (15-37); Albumin 2.2 g/dL (3.4-5.0); Alkaline Phosphatase 81 U/L (46-116); Anion Gap 6.7 mmol/L (3-11); BUN 13 mg/dL (7-18); Bilirubin, Total 3.2 mg/dL (0.2-1.0); CO2 28.3 mmol/L (21.0-32.0); CREATININE 0.6 mg/dL (0.55-1.02); Calculated LDL 76 mg/dL (<100); Chloride 107 mmol/L (98-107); Cholesterol 119 mg/dL (<200); Glucose 90 mg/dL (74-106); HDL Cholesterol 33 mg/dL (40-60); Potassium 4.2 mmol/L (3.5-5.1); Sodium 142 mmol/L (136-145); Total Protein 4.5 g/dL (6.4-8.2); Triglyceride 54 mg/dL (<150)
[2021-05-10 11:47] LABS: Anisocytosis 2+; Basophilic Stippling Present; Howell-Jolly Bodies Present; Macrocytosis 2+
[2021-05-10 11:48] LABS: Polychromasia Present
[2021-05-10 11:49] LABS: Poikilocytes 2+
== END 2021-05-10 08:44 | disposition home or self-care (01) ==
LOC: LBN 08:43
PROVIDERS: PCP Family Medicine; Visit Provider Family Medicine
DX: K83.01 Primary sclerosing cholangitis (principal); K75.4 Autoimmune hepatitis
CPT/HCPCS: 80053; 80061; 85025

== ENCOUNTER 2021-05-15 11:21 | Outpatient (REF) | payer SELFPAY ==
[2021-05-15 11:54] LABS: Abs Immature Grans 0.06 10^3/uL (0.0-0.06); Absolute Eosinophil Count 0.35 10^3/uL (0.0-0.7); Absolute Lymphocyte Count 0.75 10^3/uL (1.2-3.4); Absolute Monocyte Count 1.05 10^3/uL (0.1-0.8); Absolute Neutrophil Count 2.28 10^3/uL (1.2-6.7); Basophils % 2.2; Eosinophils % 7.6; HCT 36.1 % (36.0-46.0); HGB 12.1 g/dL (11.2-15.7); Immature Grans % 1.3; Lymphocytes % 16.3; MCH 43.4 pg (27.0-33.0); MCHC 33.5 % (32.0-36.0); MCV 129.4 fL (80-95); MPV 10.3 fL (8.0-11.0); Monocytes % 22.9; Neutrophils % 49.7; Nucleated RBC 2 %; Platelet Count 450 10^3/uL (130-400); RBC 2.79 10^6/uL (3.93-5.22); RDW 18.6 % (11.7-14.6); RDW-SD 90.5 fL; WBC 4.59 10^3/uL (4.4-10.8)
[2021-05-15 12:17] LABS: ALT 20 U/L (14-59); AST 35 U/L (15-37); Albumin 2.6 g/dL (3.4-5.0); Alkaline Phosphatase 127 U/L (46-116); Anion Gap 7.9 mmol/L (3-11); BUN 14 mg/dL (7-18); Bilirubin, Total 3.1 mg/dL (0.2-1.0); CO2 27.1 mmol/L (21.0-32.0); CREATININE 0.7 mg/dL (0.55-1.02); Calcium 8.5 mg/dL (8.5-10.1); Chloride 108 mmol/L (98-107); Glucose 110 mg/dL (74-106); Potassium 4.6 mmol/L (3.5-5.1); Sodium 143 mmol/L (136-145); Total Protein 5.2 g/dL (6.4-8.2)
== END 2021-05-15 11:22 | disposition home or self-care (01) ==
LOC: LBN 11:21
PROVIDERS: PCP Family Medicine; Visit Provider Family Medicine
DX: K83.01 Primary sclerosing cholangitis (principal); K75.4 Autoimmune hepatitis
CPT/HCPCS: 80053; 85025

== ENCOUNTER 2021-06-03 10:18 | Outpatient (REF) | payer SELFPAY ==
--- NOTE | 2021-06-03 09:30 | DI.RAD_ITS ---
Exam(s) XR HIP LT AP LAT ONLY EXAM: XR HIP LT AP LAT ONLY CLINICAL HISTORY: left femur fracture s/p IM nail. TECHNIQUE: 2D digital imaging was performed. COMPARISON: CR XR LT FEMUR [id number]* from 04/30/2021 CR XR LT FEMUR [id number]* from 04/30/2021 FINDINGS: there has been interval open reduction internal fixation of the intertrochanteric fracture placement screw secured by short stew. alignment of main fracture fragments. greater trochanter and lesser tro chanter again noted avulsed. IMPRESSION: DATA REPOSITORY: RADIATION DOSE DELIVERED:
== END 2021-06-03 10:19 | disposition home or self-care (01) ==
LOC: DIORS 10:18
PROVIDERS: PCP Family Medicine; Referring Provider Family Medicine; Visit Provider Physician Assistant
DX: S72.142D Displaced intertrochanteric fracture of left femur, subsequent encounter for closed fracture with routine healing; X58.XXXD Exposure to other specified factors, subsequent encounter
CPT/HCPCS: 73502

== ENCOUNTER 2021-06-05 18:47 | Outpatient (REF) | payer SELFPAY ==
[2021-06-05 19:27] LABS: Anion Gap 8.2 mmol/L (3-11); BUN 10 mg/dL (7-18); CO2 27.8 mmol/L (21.0-32.0); CREATININE 0.7 mg/dL (0.55-1.02); Calcium 8.4 mg/dL (8.5-10.1); Chloride 110 mmol/L (98-107); Glucose 87 mg/dL (74-106); Potassium 3.9 mmol/L (3.5-5.1); Sodium 146 mmol/L (136-145)
== END 2021-06-05 18:48 | disposition home or self-care (01) ==
LOC: LBN 18:47
PROVIDERS: PCP Family Medicine; Visit Provider Family Medicine
DX: I48.91 Unspecified atrial fibrillation (principal); E66.01 Morbid (severe) obesity due to excess calories; K75.4 Autoimmune hepatitis; K83.01 Primary sclerosing cholangitis; M06.9 Rheumatoid arthritis, unspecified
CPT/HCPCS: 80048